=== PATIENT | male | born 1945 | race Caucasian/White ===

== ENCOUNTER → 2017-09-20 07:49 | Outpatient (CLI) | payer MEDICARE, OTHER, SELFPAY ==
[2017-09-20 08:45] LABS: BUN Creatinine Ratio 31.1 (6-22); Blood Urea Nitrogen 28 mg/dL (9-20); Calcium 9.9 mg/dL (8.4-10.2); Carbon Dioxide 32 mmol/L (22-32); Chloride 100 mmol/L (98-107); Estimated Glomerular Filt Rate > 60.0 mL/min (>60); Glucose 97 mg/dL (80-110); HEMOLYSIS 25 (0-50); Potassium 3.9 mmol/L (3.4-5.1); Sodium 144 mmol/L (137-145)
== END ==
PROVIDERS: PCP Internal Medicine; Visit Provider Internal Medicine Cardiovascular Disease
DX: I48.1 Persistent atrial fibrillation (principal); I10 Essential (primary) hypertension
CPT/HCPCS: 36415; 80048

== ENCOUNTER → 2017-11-21 12:10 | Outpatient (CLI) | payer MEDICARE, OTHER, SELFPAY ==
[2017-11-21 12:50] LABS: Add Manual Diff / Slide Review NO; Basophils Percent Auto 0.7 % (0-2); Hematocrit 45.1 % (41-53); Hemoglobin 15.4 g/dL (13.5-17.5); Lymphocytes Percent Auto 24.1 % (25-40); Mean Corpuscular HGB Conc 34.2 % (30-36); Mean Corpuscular Hemoglobin 33.7 PG (26-34); Mean Corpuscular Volume 98.5 fL (80-100); Monocytes Percent Auto 15.7 % (3-14); Neutrophils Absolute Auto 4000 /uL (3000-5900); Neutrophils Percent Auto 54.5 % (50-75); Platelet Count 290 X10^3/uL (150-400); Red Blood Cell Count 4.58 X10^6/uL (4.5-5.9); White Blood Cell Count 7.4 X10^3/uL (4.5-11.0)
[2017-11-21 12:53] LABS: INR 1.5 (0.9-1.3); Prothrombin Time 16.7 SECONDS (10.1-12.7)
[2017-11-21 12:55] LABS: PTT Partial Thromboplastin Tim 47 SECONDS (26.4-36.2)
[2017-11-21 12:59] LABS: Alanine Aminotransferase 27 IU/L (21-72); Albumin 4.1 g/dL (3.5-5.0); Albumin Globulin Ratio 1.5 (1.0-2.8); Alkaline Phosphatase 65 U/L (38-126); Aspartate Aminotransferase 24 IU/L (17-59); Bilirubin Total 1.1 mg/dL (0.2-1.3); Blood Urea Nitrogen 26 mg/dL (9-20); Calcium 9.6 mg/dL (8.4-10.2); Carbon Dioxide 34 mmol/L (22-32); Chloride 98 mmol/L (98-107); Estimated Glomerular Filt Rate > 60.0 mL/min (>60); Globulin 2.8 g/dL (1.7-4.1); Glucose 91 mg/dL (80-110); HEMOLYSIS < 15 (0-50); Magnesium 1.9 mg/dL (1.6-2.3); Potassium 3.3 mmol/L (3.4-5.1); Sodium 143 mmol/L (137-145); Total Protein 6.9 g/dL (6.3-8.2)
== END ==
PROVIDERS: PCP Family Medicine; Visit Provider Internal Medicine Cardiovascular Disease
DX: I48.1 Persistent atrial fibrillation (principal); I10 Essential (primary) hypertension; I27.89 Other specified pulmonary heart diseases
CPT/HCPCS: 36415; 80053; 83735; 83880; 85025; 85610; 85730

== ENCOUNTER → 2018-07-18 13:42 | Outpatient (CLI) | payer MEDICARE, OTHER, SELFPAY ==
[2018-07-18 15:38] LABS: Blood Urea Nitrogen 24 mg/dL (9-20); Calcium 9.9 mg/dL (8.4-10.2); Carbon Dioxide 26 mmol/L (22-32); Chloride 104 mmol/L (98-107); Estimated Glomerular Filt Rate > 60.0 mL/min (>60); Glucose 95 mg/dL (80-110); HEMOLYSIS < 15 (0-50); Magnesium 1.8 mg/dL (1.6-2.3); Potassium 4.3 mmol/L (3.4-5.1); Sodium 141 mmol/L (137-145)
== END ==
PROVIDERS: PCP Family Medicine; Visit Provider Internal Medicine Cardiovascular Disease
DX: I48.1 Persistent atrial fibrillation (principal); I10 Essential (primary) hypertension; E66.09 Other obesity due to excess calories; I25.10 Atherosclerotic heart disease of native coronary artery without angina pectoris; I45.10 Unspecified right bundle-branch block; I27.89 Other specified pulmonary heart diseases
CPT/HCPCS: 36415; 80048; 83735

== ENCOUNTER → 2019-01-15 12:29 | Outpatient (CLI) | payer MEDICARE, OTHER, SELFPAY ==
[2019-01-15 13:27] LABS: BUN Creatinine Ratio 33.8 (6-22); Blood Urea Nitrogen 27 mg/dL (9-20); Calcium 9.7 mg/dL (8.4-10.2); Carbon Dioxide 29 mmol/L (22-32); Chloride 103 mmol/L (98-107); Estimated Glomerular Filt Rate > 60.0 mL/min (>60); Glucose 78 mg/dL (80-110); HEMOLYSIS < 15 (0-50); Potassium 4.2 mmol/L (3.4-5.1); Sodium 141 mmol/L (137-145)
== END ==
PROVIDERS: PCP Family Medicine; Visit Provider Internal Medicine Cardiovascular Disease
DX: Z79.899 Other long term (current) drug therapy (principal); I10 Essential (primary) hypertension
CPT/HCPCS: 36415; 80048

== ENCOUNTER → 2019-07-01 10:57 | Outpatient (CLI) | payer MEDICARE, OTHER, SELFPAY | PROVIDERS: PCP Family Medicine; Visit Provider Family Medicine | DX: R31.9 Hematuria, unspecified (principal) | CPT/HCPCS: 87077; 87086; 87186 ==

== ENCOUNTER → 2019-07-11 09:41 | Outpatient (CLI) | payer MEDICARE, OTHER, SELFPAY ==
[2019-07-11 10:39] LABS: Add Manual Diff / Slide Review NO; Basophils Absolute Auto 100 /uL (0-100); Basophils Percent Auto 0.7 % (0-2); Eosinophils Absolute Auto 700 /uL (0-450); Eosinophils Percent Auto 9.3 % (2-4); Hematocrit 42.8 % (41-53); Hemoglobin 14.2 g/dL (13.5-17.5); Lymphocytes Absolute Auto 1900 /uL (1100-4500); Lymphocytes Percent Auto 23.3 % (25-40); Mean Corpuscular HGB Conc 33.2 % (30-36); Mean Corpuscular Hemoglobin 34.2 PG (26-34); Mean Corpuscular Volume 102.8 fL (80-100); Monocytes Absolute Auto 1200 /uL (0-900); Monocytes Percent Auto 15.4 % (3-14); Neutrophils Absolute Auto 4100 /uL (1500-7000); Neutrophils Percent Auto 51.3 % (50-75); Platelet Count 320 X10^3/uL (150-400); Red Blood Cell Count 4.17 X10^6/uL (4.5-5.9); Red Cell Distribution Width 14.6 % (11.6-14.8)
[2019-07-11 10:53] LABS: Alanine Aminotransferase 27 IU/L (<50); Albumin Globulin Ratio 1.3 (1.0-2.8); Alkaline Phosphatase 78 U/L (38-126); Aspartate Aminotransferase 31 IU/L (17-59); BUN Creatinine Ratio 24.7 (6-22); Bilirubin Total 1.1 mg/dL (0.2-1.3); Bilirubin Unconjugated 1.1 mg/dL (0.0-1.1); Blood Urea Nitrogen 23 mg/dL (9-20); Calcium 9.7 mg/dL (8.4-10.2); Carbon Dioxide 28 mmol/L (22-32); Chloride 107 mmol/L (98-107); Cholesterol 165 mg/dL (140-199); Estimated Glomerular Filt Rate > 60.0 mL/min (>60); Glucose 90 mg/dL (80-110); HDL Cholesterol 61 mg/dL (40-60); HEMOLYSIS < 15 (0-50); LDL Cholesterol Calculated 89 mg/dL (<100); Potassium 4.9 mmol/L (3.4-5.1); Sodium 142 mmol/L (137-145); Triglycerides 74 mg/dL (35-150)
[2019-07-11 11:23] LABS: Thyroid Stimulating Hormone 2.52 uIU/mL (0.47-4.68)
== END ==
PROVIDERS: PCP Family Medicine; Referring Provider Family Medicine; Visit Provider Internal Medicine Cardiovascular Disease
DX: I48.91 Unspecified atrial fibrillation (principal); D63.0 Anemia in neoplastic disease; R53.0 Neoplastic (malignant) related fatigue; I10 Essential (primary) hypertension
CPT/HCPCS: 36415; 80053; 80061; 80076; 83735; 84443; 85025

== ENCOUNTER 2019-08-12 13:55 | Emergency (ER) | payer MEDICARE, OTHER, SELFPAY ==
[2019-08-12 14:03] VITALS: BP 178/97; PULSE 79; RESP 20; TEMP 36.6; O2SAT 97
--- NOTE | 2019-08-12 14:37 | DI.US.S_ITS ---
PROCEDURE: US SCROTUM INDICATIONS: HX ING HERNIA REPAIR, WORSENING SWELLING IN R GROIN, SCROTUM TECHNIQUE: Real-time scanning was performed of the scrotum and testicles, with image documentation. Color and pulse Doppler interrogation was performed of both testicles. COMPARISON: None. FINDINGS: Right: Testicle is normal in size at 4.9 x 2.5 x 2.5 cm, and homogenous in echotexture. Epididymis is normal in overall size and morphology. There is a large right-sided hydrocele seen that measures 14 x 7.2 x 9.1 cm. No varicoceles. Overlying scrotal skin is normal in thickness. Left: Testicle is normal in size at 4.2 x 2.1 x 3.4 cm, and homogeneous in echotexture. Epididymis is normal in overall size and morphology. No hydrocele or varicoceles. Overlying scrotal skin is normal in thickness. Doppler: Color and pulse Doppler demonstrate normal and symmetric arterial flow in both testicles. No findings of hernia are seen. IMPRESSION: Large right-sided hydrocele. Normal appearing testicles. No findings of recurrent hernia. Dictated by: Michael Capellan M.D. on 08/12/2019 at 14:35 Approved by: Michael Capellan M.D. on 08/12/2019 at 14:36
[2019-08-12 15:00] VITALS: BP 170/80; PULSE 71; RESP 20; O2SAT 97
--- NOTE | 2019-08-12 16:37 | PC.NURSE ---
pt states scrotal swelling since the beginning of June.
--- NOTE | 2019-08-12 16:44 | ED.ABDPAIN ---
HPI - Abdominal Pain <Johnathon TROY Mckeon - Last Filed: 08/12/19 22:55> General Chief Complaint: Abdominal Pain Stated Complaint: POSSIBLE HERNIA Time Seen by Provider: 08/12/19 14:05 Source: patient Mode of arrival: Ambulatory Limitations: no limitations History of Present Illness HPI narrative: This is a 74-year-old male, nonsmoker, who presents to ED with right scrotal swelling since Monday afternoon. Patient reports he was working on his yard on Monday and pulled wheeze while he was on his knees and hands. Patient noticed some mild discomfort on Monday evening. Patient reports pain is not significant at all and does not increase with ambulation. Patient denies urinary symptoms or hematuria. Patient was recently treated with antibiotic medications Cipro after he was evaluated by his primary care as physician Dr. Jarquin on 07/01/2019 with hematuria and bladder infection at that time. 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 He did not have any adverse symptoms from the medication at that time. Patient was also referred [place] [facility] for further evaluation on right scrotal swelling given this may caused from inguinal hernia but due to Covid 19 pandemic, the appointment is pending at this time. Patient denies vomiting, nausea, fever. Patient sees Dr. Hebert in the past for urologic problems. Related Data Home Medications Medication Instructions Recorded Confirmed apixaban 5 mg tablet 5 mg PO BID 09/26/17 07/01/19 metoprolol tartrate 25 mg tablet 25 mg PO .qday tab 09/26/17 07/01/19 dofetilide 250 mcg capsule 250 mcg PO Q12H 04/11/18 07/01/19 losartan 50 mg tablet 50 mg PO DAILY 04/11/18 07/01/19 potassium chloride 20 mEq 20 meq PO BID tab 04/11/18 07/01/19 tablet,extended release felodipine 5 mg tablet,extended 5 mg PO DAILY 05/21/18 07/01/19 release 24 hr Previous Rx's Medication Instructions Recorded montelukast 10 mg tablet See Rx Instructions .ROUTE 05/27/19 .COMPLEX #90 tablet albuterol sulfate 90 mcg/actuation 2 puff INHALATION Q4-6H PRN #18 07/01/19 aerosol inhaler gram ciprofloxacin HCl 500 mg tablet 500 mg PO BID #14 tab 07/05/19 budesonide 90 mcg/actuation breath See Rx Instructions .ROUTE 07/24/19 activated powder inhaler .COMPLEX #3 gram Allergies Allergy/AdvReac Type Severity Reaction Status Date / Time No Known Drug Allergies Allergy Verified 07/01/19 10:33 Review of Systems <TROY Martínez - Last Filed: 08/12/19 22:55> Review of Systems Narrative: General: Denies fever, chills, fatigue, malaise, sweats. HEENT: Denies sinus pain, ear pain, sore throat, difficulty swallowing, dizziness. Respiratory: Denies dyspnea, cough, wheezing, hemoptysis, sputum. Cardiovascular: Denies chest pain, palpitations, orthopnea, edema. Gastrointestinal: Denies nausea, vomiting, abdominal pain, diarrhea, constipation, melena. : See HPI Musculoskeletal: Denies weakness, joint pain or bony pain. Skin: Denies rash, skin lesions, or other. Neurologic: Denies weakness, headache, numbness, change in speech, confusion, seizures, incoordination. Psychiatric: No concerning psychosocial issues. 12-point review of systems is negative except for those stated above. Patient History <TROY Martínez - Last Filed: 08/12/19 22:55> Medical History (Updated 08/12/19 @ 17:22 by TROY Martínez) Ankle fracture, left (Chronic) Asthma (Chronic) Atrial fibrillation (Chronic ~2017) Chicken pox (Resolved) Hay fever (Chronic) Hypertension (Chronic ~1989) Left bundle branch block (Chronic) Measles (Resolved) Mumps (Resolved) MUNIRA (obstructive sleep apnea) (Chronic) UTI (urinary tract infection) (Acute) Surgical History History of ankle joint replacement (Resolved ~2017) History of hernia repair (Resolved) History of partial knee replacement (Resolved ~2014) S/P TURP (Resolved) Social History marital status: special mariano needs: No Smoking Status: Never smoker alcohol intake: current (very very very seldom) substance use type: does not use Smoking Status: Never smoker Exam <TROY Martínez - Last Filed: 08/12/19 22:55> Narrative Exam Narrative: GEN: Alert, oriented x 3, well appearing and nourished, and in no acute distress. Head: Normal cephalic, atraumatic. No scalp or temporal tenderness, palpable mass or rash. EYES: Pupils are equal, round, and reactive to light and accommodation. Extraocular muscles are intact bilaterally. There is no subconjunctival hemorrhage, exudate and sclera non-icteric. ENT: Bilateral auditory canals and tympanic membranes clear. Hearing grossly intact. Nose without bleeding, purulent discharge or deviation. Facial sinuses nontender to palpate. Mucous membrane moist, no mucosal lesion. Throat without erythema, tonsillar hypertrophy or exudate. Uvula in midline, airway patent. Neck: Trachea in midline. No JVD, non-tender without lymphadenopathy. No masses or thyroid megaly. Supple, non-tender and no meningeal signs. CARDIAC: Normal regular rate and rhythm without murmurs, gallops, or rubs. No chest wall tenderness. No peripheral edema, cyanosis or pallor. Capillary refill is less than 2 seconds. RESPIRATORY: Lungs are clear to auscultate bilaterally. No cough, wheezes, rales, or rhonchi. No stridor, respiratory distress, increase work of breathing, or accessary muscle used. ABD: Abdomen soft, nontender and non-distended. No guarding or rebound tenderness to palpate. Bowel sounds are normal in all 4 quadrants. Right side groin swelling but nontender to palpate. EXT: Full painless ROM of all extremities with no loss of sensation, strength, effusion or edema. SKIN: Warm, dry, normal color for patient. No erythema, lesions or rash over visible areas. BACK: Nontender without deformity or crepitance. No flank tenderness. NEUROLOGICAL: Alert and oriented to place, time and person. Sensation and motor function intact bilaterally. No facial droops, dysphasia. PSYCHIATRIC: Good judgement and reason, without hallucinations, abnormal affect or abnormal behaviors during the examination. Initial Vital Signs Initial Vital Signs: Vital Signs Temperature 97.8 F 08/12/19 14:03 Pulse Rate 79 08/12/19 14:03 Respiratory Rate 20 08/12/19 14:03 Blood Pressure 178/97 H 08/12/19 14:03 Pulse Oximetry 97 08/12/19 14:03 Penis: normal penis Meatus: meatus normal Scrotum: no ecchymosis, edematous on the right, not erythematous, inguinal hernia on the right, scrotal mass, scrotal swelling on the right and no varicoceles Testes: normal and testicular lie normal <Charley Fried MD - Last Filed: 08/13/19 07:24> Initial Vital Signs Initial Vital Signs: Vital Signs Temperature 97.8 F 08/12/19 14:03 Pulse Rate 79 08/12/19 14:03 Respiratory Rate 20 08/12/19 14:03 Blood Pressure 178/97 H 08/12/19 14:03 Pulse Oximetry 97 08/12/19 14:03 Scores <Johnathon ROSSY MckeonP - Last Filed: 08/12/19 22:55> GCS Yariel coma scale eye opening: Spontaneous Yariel coma scale verbal response: Orientated Farwell coma scale motor response: Obey commands Yariel coma scale total score: 15 Course <Johnathon TROY Mckeon - Last Filed: 08/12/19 22:55> Orders Ordered: ED Orders 08/12/19 14:37 US scrotum Stat 08/12/19 16:20 Urine Culture Stat Urine Microscopic Stat Consultations Consultation #1: Dr. Fried was consulted with findings and treatment plan. Vital Signs Vital signs: Vital Signs - 8 hr 08/12/19 15:00 08/12/19 17:40 Pulse Rate 71 62 Respiratory Rate 20 17 Blood Pressure [Right Arm] 170/80 H 145/85 H Pulse Oximetry 97 99 <Charley Fried MD - Last Filed: 08/13/19 07:24> Orders Ordered: ED Orders 08/12/19 14:37 US scrotum Stat 08/12/19 16:20 Urine Culture Stat Urine Microscopic Stat Vital Signs Vital signs: Vital Signs - 8 hr 08/12/19 15:00 08/12/19 17:40 Pulse Rate 71 62 Respiratory Rate 20 17 Blood Pressure [Right Arm] 170/80 H 145/85 H Pulse Oximetry 97 99 MDM - Abdominal Pain <TROY Martínez - Last Filed: 08/12/19 22:55> Differential Diagnosis Differential diagnosis: Likely abdominal pain and other (Inguinal hernia, hydrocele, epididymitis) Medical Records Attestation: I reviewed the patient's medical records. Lab Data Attestation: I reviewed the patient's lab results. Labs: Lab Results 08/12/19 Range/Units 16:20 Urine RBC 1-5/hpf (0-5/HPF) Urine WBC 30-100/hpf H (0-5/HPF) Ur Squamous Epith Cells 0-1 /hpf (0-5/HPF) Amorphous Sediment 1+ Urine Bacteria Moderate (10-30) H (None) Urine Mucus 1+ H (Negative) Ur Culture Indicated? Specimen cultured Point of care testing: Urine Dip Bedside Urine Glucose Negative Bedside Urine Bilirubin - Negative Bedside Urine Ketone - Negative Urine Specific Superior 1.025 Bedside Urine Occult Blood +++ Bedside Urine pH 6.0 Bedside Urine Protein +/- 15 Bedside Urine Urobilinogen - Negative Bedside Urine Nitrite + Positive Bedside Urine Leukocytes +++ 500 Esterase Imaging Data US-Scrotum: Radiologist's Impression: [address] [address] Ultrasound Report Signed Patient: Ted Gentile [facility]#: [id number] : 7Acct:[id number] Age/Sex: 74 / MDate of Service: 08/12/19 Loc: ED Accession Number: [id number] Procedure: US scrotum Ordering Provider: Johnathon Mckeon PROCEDURE: US SCROTUM INDICATIONS: HX ING HERNIA REPAIR, WORSENING SWELLING IN R GROIN, SCROTUM TECHNIQUE: Real-time scanning was performed of the scrotum and testicles, with image documentation. Color and pulse Doppler interrogation was performed of both testicles. COMPARISON: None. FINDINGS: Right: Testicle is normal in size at 4.9 x 2.5 x 2.5 cm, and homogenous in echotexture. Epididymis is normal in overall size and morphology. There is a large right-sided hydrocele seen that measures 14 x 7.2 x 9.1 cm. No varicoceles. Overlying scrotal skin is normal in thickness. Left: Testicle is normal in size at 4.2 x 2.1 x 3.4 cm, and homogeneous in echotexture. Epididymis is normal in overall size and morphology. No hydrocele or varicoceles. Overlying scrotal skin is normal in thickness. Doppler: Color and pulse Doppler demonstrate normal and symmetric arterial flow in both testicles. No findings of hernia are seen. IMPRESSION: Large right-sided hydrocele. Normal appearing testicles. No findings of recurrent hernia. Dictated by: Michael Capellan M.D. on 08/12/2019 at 14:35 Approved by: Michael Capellan M.D. on 08/12/2019 at 14:36 [facility] Narrative Medical decision making narrative: This is a 74-year-old male who presents to ED with right groin and non traumatic, very mildly painful increasing scrotal swelling since Monday. Patient states he was gardening and pulled weeds while on his knees and hands prior to the symptoms started on Monday. Patient has history of inguinal hernia repair 15 years ago and had TURP procedure for BPH in the past. Patient has history of AFib and is currently takes Eliquis daily. Patient was treated with antibiotic medication Cipro for UTI in 07/01/19 and was referred to [facility] for an evaluation for increased inguinal hernia per his PCP, Dr. Jarquin. Patient denies urinary symptoms such as hematuria, dysuria, frequency or urgency. Today's urine test shows positive for urine leukocytes esterase and nitrites. Micro test indicates urine WBC, bacteria, 1+ mucus and culture is pending. Considered treating patient with antibiotic medication but previous urine culture indicates Staphylococcus epidermidis which may be a result of contaminated sample. Will wait until urine culture result indicates patient is antibiotic medication treatment. 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 Pharmacist contacted for the recommendation and was suggested that doxycycline has the least interaction with Tikosyn and to avoid all fluoroquinolones or Septra/Bactrim. US scrotum test result indicates hydrocele and no findings of recurring hernia, testicular torsion, epididymitis appreciated. Right testicles in normal size with a large right-sided hydrocele masured as 14 x 7.2 x 9.[address] Hebert was consulted and it was recommended to follow up outpatient at the urology clinic. Return precautions were discussed with patient and patient verbalized understanding and in agreement with the treatment plan. <Charley Fried MD - Last Filed: 08/13/19 07:24> Lab Data Labs: Lab Results 08/12/19 Range/Units 16:20 Urine RBC 1-5/hpf (0-5/HPF) Urine WBC 30-100/hpf H (0-5/HPF) Ur Squamous Epith Cells 0-1 /hpf (0-5/HPF) Amorphous Sediment 1+ Urine Bacteria Moderate (10-30) H (None) Urine Mucus 1+ H (Negative) Ur Culture Indicated? Specimen cultured Point of care testing: Urine Dip Bedside Urine Glucose Negative Bedside Urine Bilirubin - Negative Bedside Urine Ketone - Negative Urine Specific Superior 1.025 Bedside Urine Occult Blood +++ Bedside Urine pH 6.0 Bedside Urine Protein +/- 15 Bedside Urine Urobilinogen - Negative Bedside Urine Nitrite + Positive Bedside Urine Leukocytes +++ 500 Esterase Discharge Plan Departure Patient Disposition: Home Clinical Impression: Hydrocele in adult Discharge Date/Time: 08/12/19 17:42 Instructions: DI for Hydrocele-Adult Activity Restrictions/Additional Instructions: You have been diagnosed with [hydrocele per ultrasound test. Urine culture is pending and you will receive a phone call if you require antibiotic medication treatment since you do not have urinary symptoms at this time. Previous urine culture test. Dr. Hebert has been contacted for your condition and test findings.]. What to do: *Take your medications as directed. Please continue with your medication. *Follow up with your primary care provider and Dr. Hebert in 2-3 days, call for an appointment. Please contact Dr. Hebert's office tomorrow to make a follow-up appointment. Let them know you were seen in the ED and that we asked you to be seen in follow up. *Return to ED if you have any new, worsening, or concerning symptoms, such as [urinary symptoms including dysuria, fever, back pain, abdominal pain, vomiting, unable to void for more than 8 hours or any acute concerns]. Prescriptions: No Action albuterol sulfate [Ventolin HFA] 90 mcg/actuation HFA aerosol inhaler 2 puff INHALATION Q4-6H PRN (Reason: shortness of breath or wheezing) Qty: 18 RF: 3 montelukast 10 mg tablet See Rx Instructions .ROUTE .COMPLEX Qty: 90 RF: 3 ciprofloxacin HCl 500 mg tablet 500 mg PO BID Qty: 14 RF: 0 Pulmicort Flexhaler 90 mcg/actuation aerosol powdr breath activated See Rx Instructions .ROUTE .COMPLEX Qty: 3 RF: 1 metoprolol tartrate 25 mg tablet 25 mg PO .qday RF: 0 apixaban [Eliquis] 5 mg tablet 5 mg PO BID RF: 0 losartan 50 mg tablet 50 mg PO DAILY RF: 0 potassium chloride 20 mEq tablet extended release 20 meq PO BID RF: 0 dofetilide 250 mcg capsule 250 mcg PO Q12H RF: 0 felodipine 5 mg tablet extended release 24 hr 5 mg PO DAILY RF: 0 Referrals: Joanna Hebert MD [Non-Staff] - Arlene Jarquin MD [Primary Care Provider] - <Charley Fried MD - Last Filed: 08/13/19 07:24> Cosign ED Attending Cosignature Attestation: I was immediately available in the department for consultation throughout this patient's visit. I agree with documentation as above. Charley Fried MD
[2019-08-12 16:49] LABS: Amorphous Sediment Urine 1+; RBC Urine 1-5/HPF (0-5/HPF); Squamous Epithelial Cell Urine 0-1 /HPF (0-5/HPF); WBC Urine 30-100/HPF (0-5/HPF)
[2019-08-12 16:50] LABS: Bacteria Urine Moderate (10-30); Culture Indicated Urine Specimen Cultured; Mucus Urine 1+ (Negative)
[2019-08-12 17:40] VITALS: BP 145/85; PULSE 62; RESP 17; O2SAT 99
== END 2019-08-12 17:42 | disposition home or self-care (01) ==
PROVIDERS: Emergency Provider Nurse Practitioner Family; PCP Family Medicine
DX: N43.3 Hydrocele, unspecified (principal)
CPT/HCPCS: 36415; 76870; 81003; 81015; 87077; 87086; 87147; 87186; 99283; 99284

== ENCOUNTER → 2020-02-24 12:33 | Outpatient (CLI) | payer MEDICARE, OTHER, SELFPAY ==
[2020-02-24 14:18] LABS: Add Manual Diff / Slide Review NO; Basophils Absolute Auto 100 /uL (0-100); Basophils Percent Auto 0.7 % (0-2); Eosinophils Absolute Auto 400 /uL (0-450); Eosinophils Percent Auto 5.3 % (2-4); Hematocrit 42.4 % (41-53); Hemoglobin 14.4 g/dL (13.5-17.5); Lymphocytes Absolute Auto 1300 /uL (1100-4500); Lymphocytes Percent Auto 16.9 % (25-40); Mean Corpuscular HGB Conc 33.8 % (30-36); Mean Corpuscular Hemoglobin 34.3 PG (26-34); Mean Corpuscular Volume 101.3 fL (80-100); Monocytes Absolute Auto 1200 /uL (0-900); Neutrophils Absolute Auto 4900 /uL (1500-7000); Neutrophils Percent Auto 62.1 % (50-75); Platelet Count 284 X10^3/uL (150-400); Red Blood Cell Count 4.19 X10^6/uL (4.5-5.9); Red Cell Distribution Width 14.5 % (11.6-14.8); White Blood Cell Count 7.9 X10^3/uL (4.5-11.0)
[2020-02-24 15:35] LABS: Alanine Aminotransferase 21 IU/L (<50); Albumin 3.8 g/dL (3.5-5.0); Albumin Globulin Ratio 1.3 (1.0-2.8); Alkaline Phosphatase 77 U/L (38-126); Aspartate Aminotransferase 24 IU/L (17-59); BUN Creatinine Ratio 32.1 (6-22); Bilirubin Total 0.8 mg/dL (0.2-1.3); Blood Urea Nitrogen 27 mg/dL (9-20); Calcium 9.5 mg/dL (8.4-10.2); Carbon Dioxide 30 mmol/L (22-32); Chloride 105 mmol/L (98-107); Cholesterol 155 mg/dL (140-199); Estimated Glomerular Filt Rate > 60.0 mL/min (>60); Globulin 2.9 g/dL (1.7-4.1); Glucose 95 mg/dL (80-110); HDL Cholesterol 55 mg/dL (40-60); HEMOLYSIS < 15 (0-50); LDL Cholesterol Calculated 79 mg/dL (<100); Potassium 4.8 mmol/L (3.4-5.1); Sodium 139 mmol/L (137-145); Total Protein 6.7 g/dL (6.3-8.2); Triglycerides 105 mg/dL (35-150)
== END ==
PROVIDERS: PCP Family Medicine; Referring Provider Internal Medicine Cardiovascular Disease; Visit Provider Internal Medicine Cardiovascular Disease
DX: I48.11 Longstanding persistent atrial fibrillation (principal); I10 Essential (primary) hypertension; I44.7 Left bundle-branch block, unspecified; E66.09 Other obesity due to excess calories; I25.10 Atherosclerotic heart disease of native coronary artery without angina pectoris; J44.9 Chronic obstructive pulmonary disease, unspecified; G47.33 Obstructive sleep apnea (adult) (pediatric)
CPT/HCPCS: 36415; 80053; 80061; 84443; 85025

== ENCOUNTER → 2020-05-29 14:55 | Outpatient (CLI) | payer MEDICARE, OTHER, SELFPAY ==
[2020-05-29] MEDS: COVID-19 VACC #1, MRNA(MOD) 100 MCG/0.5 ML VIAL IM (15:01)
== END ==
PROVIDERS: PCP Family Medicine; Visit Provider Internal Medicine
DX: Z23 Encounter for immunization (principal)
CPT/HCPCS: 0011A; 91301

== ENCOUNTER → 2020-06-25 14:01 | Outpatient (CLI) | payer MEDICARE, OTHER, SELFPAY ==
[2020-06-25] MEDS: COVID-19 VACC #2, MRNA(MOD) 100 MCG/0.5 ML VIAL IM (14:14)
== END ==
PROVIDERS: PCP Family Medicine; Visit Provider Internal Medicine
DX: Z23 Encounter for immunization (principal)
CPT/HCPCS: 0012A; 91301

== ENCOUNTER → 2020-07-13 09:33 | Outpatient (CLI) | payer MEDICARE, OTHER, SELFPAY ==
[2020-07-13 09:49] LABS: Bacteria Urine None Seen
[2020-07-13 10:32] LABS: Appearance Urine UA CLOUDY; Bilirubin Urine UA NEGATIVE (NEGATIVE); Color Urine UA ORANGE; Glucose Urine UA TRACE g/dL (Negative); Ketones Urine UA NEGATIVE (NEGATIVE); Leukocyte Esterase Urine UA 3+ (NEGATIVE); Nitrite Urine UA POSITIVE (Negative); Occult Blood Urine UA 3+ (Negative); Protein Urine UA 2+ (Negative); pH Urine UA 6.5 (4.5-8.0)
[2020-07-13 10:44] LABS: Amorphous Sediment Urine 3+; Culture Indicated Urine Specimen Cultured; RBC Urine 1-5/HPF (0-5/HPF); WBC Urine 30-100/HPF (0-5/HPF)
== END ==
PROVIDERS: PCP Family Medicine; Referring Provider Family Medicine; Visit Provider Family Medicine
DX: R30.0 Dysuria (principal)
CPT/HCPCS: 81001; 87077; 87086; 87186

== ENCOUNTER → 2020-07-20 13:17 | Outpatient (CLI) | payer MEDICARE, OTHER, SELFPAY ==
[2020-07-20 13:39] LABS: Appearance Urine UA CLOUDY; Bilirubin Urine UA NEGATIVE (NEGATIVE); Color Urine UA YELLOW; Glucose Urine UA NEGATIVE (Negative); Ketones Urine UA NEGATIVE (NEGATIVE); Leukocyte Esterase Urine UA 3+ (NEGATIVE); Nitrite Urine UA POSITIVE (Negative); Occult Blood Urine UA 3+ (Negative); Protein Urine UA 2+ (Negative); Specific Gravity Urine UA >=1.030 (1.000-1.035); Urobilinogen Urine UA 0.2 E.U./dL (0.2); pH Urine UA 5.5 (4.5-8.0)
[2020-07-20 13:45] LABS: Amorphous Sediment Urine 1+; Bacteria Urine Moderate (10-30); Culture Indicated Urine Specimen Cultured; Mucus Urine 2+ (Negative); RBC Urine 5-10/HPF (0-5/HPF); Squamous Epithelial Cell Urine 1-5 /HPF (0-5/HPF); WBC Urine >100/HPF (0-5/HPF)
== END ==
PROVIDERS: PCP Family Medicine; Referring Provider Family Medicine; Visit Provider Family Medicine
DX: N39.0 Urinary tract infection, site not specified (principal)
CPT/HCPCS: 81001; 87077; 87086; 87147; 87186

== ENCOUNTER → 2020-08-04 13:19 | Outpatient (CLI) | payer MEDICARE, OTHER, SELFPAY | PROVIDERS: PCP Family Medicine; Visit Provider Family Medicine | DX: N39.0 Urinary tract infection, site not specified (principal) | CPT/HCPCS: 87077; 87086; 87147; 87186 ==

== ENCOUNTER → 2021-06-11 08:08 | Outpatient (CLI) | payer MEDICARE, OTHER, SELFPAY ==
[2021-06-11 10:23] LABS: Alanine Aminotransferase 22 IU/L (<50); Albumin Globulin Ratio 1.4 (1.0-2.8); Alkaline Phosphatase 74 U/L (38-126); Aspartate Aminotransferase 25 IU/L (17-59); BUN Creatinine Ratio 35.2 (6-22); Bilirubin Total 0.8 mg/dL (0.2-1.3); Blood Urea Nitrogen 32 mg/dL (9-20); Calcium 9.4 mg/dL (8.4-10.2); Carbon Dioxide 32 mmol/L (22-32); Chloride 107 mmol/L (98-107); Cholesterol 168 mg/dL (140-199); Estimated Glomerular Filt Rate > 60.0 mL/min (>60); Globulin 2.9 g/dL (1.7-4.1); Glucose 89 mg/dL (80-110); HDL Cholesterol 59 mg/dL (40-60); HEMOLYSIS < 15 (0-50); LDL Cholesterol Calculated 96 mg/dL (<100); Potassium 4.4 mmol/L (3.4-5.1); Sodium 141 mmol/L (137-145); Total Protein 6.9 g/dL (6.3-8.2); Triglycerides 63 mg/dL (35-150)
[2021-06-11 12:31] LABS: Creatinine Urine Random 137.5 mg/dL
[2021-06-11 13:58] LABS: Microalbumi Creatinin Ratio Ur 400.7 ug/mg CR (<30); Microalbumin Urine Random 55.1 mg/dL (0-1.6)
== END ==
PROVIDERS: PCP Family Medicine; Referring Provider Family Medicine; Visit Provider Family Medicine
DX: I10 Essential (primary) hypertension (principal)
CPT/HCPCS: 36415; 80053; 80061; 82043; 82570

== ENCOUNTER → 2021-09-28 06:58 | Outpatient (CLI) | payer MEDICARE, OTHER, SELFPAY ==
[2021-09-28 08:09] LABS: Hemoglobin A1C% w Est Avg Glu 5.5 % (4.0-6.0)
[2021-09-28 08:12] LABS: Add Manual Diff / Slide Review NO; Basophils Absolute Auto 0 /uL (0-100); Basophils Percent Auto 0.6 % (0-2); Eosinophils Absolute Auto 800 /uL (0-450); Eosinophils Percent Auto 10.1 % (2-4); Hematocrit 39.2 % (41-53); Hemoglobin 13.2 g/dL (13.5-17.5); Lymphocytes Absolute Auto 1400 /uL (1100-4500); Lymphocytes Percent Auto 18.9 % (25-40); Mean Corpuscular HGB Conc 33.8 % (30-36); Mean Corpuscular Hemoglobin 32.4 PG (26-34); Mean Corpuscular Volume 95.9 fL (80-100); Monocytes Absolute Auto 1100 /uL (0-900); Monocytes Percent Auto 14.3 % (3-14); Neutrophils Absolute Auto 4200 /uL (1500-7000); Neutrophils Percent Auto 56.1 % (50-75); Platelet Count 367 X10^3/uL (150-400); Red Blood Cell Count 4.08 X10^6/uL (4.5-5.9); Red Cell Distribution Width 14.4 % (11.6-14.8); White Blood Cell Count 7.5 X10^3/uL (4.5-11.0)
[2021-09-28 08:53] LABS: Alanine Aminotransferase 18 IU/L (<50); Albumin 3.7 g/dL (3.5-5.0); Albumin Globulin Ratio 1.9 (1.0-2.8); Alkaline Phosphatase 72 U/L (38-126); Aspartate Aminotransferase 23 IU/L (17-59); Bilirubin Total 0.7 mg/dL (0.2-1.3); Blood Urea Nitrogen 30 mg/dL (9-20); Calcium 9.1 mg/dL (8.4-10.2); Carbon Dioxide 27 mmol/L (22-32); Chloride 107 mmol/L (98-107); Cholesterol 156 mg/dL (140-199); Estimated Glomerular Filt Rate > 60 mL/min (>60); Glucose 89 mg/dL (80-110); HDL Cholesterol 55 mg/dL (40-60); HEMOLYSIS < 15 (0-50); LDL Cholesterol Calculated 84 mg/dL (<100); Potassium 4.5 mmol/L (3.4-5.1); Sodium 140 mmol/L (137-145); Total Protein 5.7 g/dL (6.3-8.2); Triglycerides 83 mg/dL (35-150)
[2021-09-28 09:23] LABS: Thyroid Stimulating Hormone 2.06 uIU/mL (0.47-4.68)
== END ==
PROVIDERS: PCP Family Medicine; Referring Provider Internal Medicine Cardiovascular Disease; Visit Provider Internal Medicine Cardiovascular Disease
DX: I48.0 Paroxysmal atrial fibrillation (principal); Z79.899 Other long term (current) drug therapy
CPT/HCPCS: 36415; 80053; 80061; 83036; 84443; 85025

== ENCOUNTER → 2022-06-04 09:51 | Outpatient (CLI) | payer MEDICARE, OTHER, SELFPAY ==
[2022-06-04 12:23] LABS: Add Manual Diff / Slide Review NO; Basophils Absolute Auto 100 /uL (0-100); Eosinophils Absolute Auto 1200 /uL (0-450); Eosinophils Percent Auto 13.7 % (2-4); Hematocrit 29.2 % (41-53); Hemoglobin 8.7 g/dL (13.5-17.5); Lymphocytes Absolute Auto 1700 /uL (1100-4500); Lymphocytes Percent Auto 19.1 % (25-40); Mean Corpuscular HGB Conc 29.9 % (30-36); Mean Corpuscular Hemoglobin 22.1 PG (26-34); Mean Corpuscular Volume 73.8 fL (80-100); Monocytes Absolute Auto 1500 /uL (0-900); Neutrophils Absolute Auto 4600 /uL (1500-7000); Neutrophils Percent Auto 50.2 % (50-75); Platelet Count 537 X10^3/uL (150-400); Red Blood Cell Count 3.96 X10^6/uL (4.5-5.9); Red Cell Distribution Width 18.8 % (11.6-14.8); White Blood Cell Count 9.1 X10^3/uL (4.5-11.0)
[2022-06-04 12:42] LABS: Alanine Aminotransferase 19 IU/L (<50); Albumin 3.5 g/dL (3.5-5.0); Albumin Globulin Ratio 1.3 (1.0-2.8); Alkaline Phosphatase 82 U/L (38-126); Aspartate Aminotransferase 21 IU/L (17-59); BUN Creatinine Ratio 28.9 (6-22); Bilirubin Total 0.4 mg/dL (0.2-1.3); Blood Urea Nitrogen 26 mg/dL (9-20); Calcium 8.7 mg/dL (8.4-10.2); Carbon Dioxide 26 mmol/L (22-32); Chloride 105 mmol/L (98-107); Cholesterol 138 mg/dL (140-199); Estimated Glomerular Filt Rate > 60 mL/min (>60); Globulin 2.7 g/dL (1.7-4.1); Glucose 90 mg/dL (80-110); HDL Cholesterol 53 mg/dL (40-60); HEMOLYSIS < 15 (0-50); LDL Cholesterol Calculated 75 mg/dL (<100); Magnesium 1.9 mg/dL (1.6-2.3); Potassium 4.5 mmol/L (3.4-5.1); Sodium 141 mmol/L (137-145); Total Protein 6.2 g/dL (6.3-8.2); Triglycerides 51 mg/dL (35-150)
[2022-06-04 13:11] LABS: Thyroid Stimulating Hormone 2.25 uIU/mL (0.47-4.68)
== END ==
PROVIDERS: PCP Family Medicine; Referring Provider Internal Medicine Cardiovascular Disease; Visit Provider Internal Medicine Cardiovascular Disease
DX: I48.0 Paroxysmal atrial fibrillation (principal); I10 Essential (primary) hypertension
CPT/HCPCS: 36415; 80053; 80061; 83735; 84443; 85025

== ENCOUNTER → 2022-09-27 12:36 | Outpatient (CLI) | payer MEDICARE, OTHER, SELFPAY ==
[2022-09-27 14:28] LABS: Add Manual Diff / Slide Review NO; Basophils Absolute Auto 100 /uL (0-100); Basophils Percent Auto 1.9 % (0-2); Eosinophils Absolute Auto 600 /uL (0-450); Hematocrit 29.9 % (41-53); Hemoglobin 9.1 g/dL (13.5-17.5); Lymphocytes Absolute Auto 1300 /uL (1100-4500); Lymphocytes Percent Auto 16.9 % (25-40); Mean Corpuscular HGB Conc 30.5 % (30-36); Mean Corpuscular Hemoglobin 21.3 PG (26-34); Mean Corpuscular Volume 69.8 fL (80-100); Monocytes Absolute Auto 1000 /uL (0-900); Monocytes Percent Auto 13.2 % (3-14); Neutrophils Absolute Auto 4500 /uL (1500-7000); Platelet Count 556 X10^3/uL (150-400); Red Blood Cell Count 4.28 X10^6/uL (4.5-5.9); Red Cell Distribution Width 20.8 % (11.6-14.8); White Blood Cell Count 7.5 X10^3/uL (4.5-11.0)
[2022-09-27 14:35] LABS: Anisocytosis 2+; Poikilocytosis 1+
[2022-09-27 14:52] LABS: BUN Creatinine Ratio 33.3 (6-22); Blood Urea Nitrogen 29 mg/dL (9-20); Calcium 8.9 mg/dL (8.4-10.2); Carbon Dioxide 27 mmol/L (22-32); Chloride 104 mmol/L (98-107); Cholesterol 152 mg/dL (140-199); Estimated Glomerular Filt Rate > 60 mL/min (>60); Glucose 96 mg/dL (80-110); HDL Cholesterol 48 mg/dL (40-60); HEMOLYSIS 26 (0-50); LDL Cholesterol Calculated 85 mg/dL (<100); Potassium 4.2 mmol/L (3.4-5.1); Sodium 141 mmol/L (137-145); Triglycerides 96 mg/dL (35-150)
[2022-09-27 15:25] LABS: Thyroid Stimulating Hormone 1.51 uIU/mL (0.47-4.68)
[2022-09-28 05:44] LABS: x Labcorp Estim. Avg Glu (eAG) 117 mg/dL (.); x Labcorp Hemoglobin A1c 5.7 % (4.8-5.6)
== END ==
PROVIDERS: PCP Family Medicine; Referring Provider Internal Medicine Cardiovascular Disease; Visit Provider Internal Medicine Cardiovascular Disease
DX: Z79.899 Other long term (current) drug therapy (principal)
CPT/HCPCS: 36415; 80048; 80061; 83036; 84443; 85025

== ENCOUNTER → 2023-01-24 17:35 | Outpatient (CLI) | payer MEDICARE, OTHER, SELFPAY ==
[2023-01-24 18:04] LABS: Appearance Urine UA CLOUDY; Bilirubin Urine UA NEGATIVE (NEGATIVE); Color Urine UA YELLOW; Glucose Urine UA NEGATIVE (Negative); Ketones Urine UA NEGATIVE (NEGATIVE); Leukocyte Esterase Urine UA 3+ (NEGATIVE); Nitrite Urine UA POSITIVE (Negative); Occult Blood Urine UA 3+ (Negative); Protein Urine UA 2+ (Negative); Urobilinogen Urine UA 0.2 E.U./dL (0.2)
[2023-01-24 18:15] LABS: Bacteria Urine Many (>30); Culture Indicated Urine Specimen Cultured; RBC Urine 30-100/HPF (0-5/HPF); Squamous Epithelial Cell Urine 1-5 /HPF (0-5/HPF); WBC Urine >100/HPF (0-5/HPF)
== END ==
PROVIDERS: PCP Family Medicine; Referring Provider Family Medicine; Visit Provider Family Medicine
DX: N39.41 Urge incontinence (principal); R39.15 Urgency of urination
CPT/HCPCS: 81001; 87086

== ENCOUNTER → 2023-01-30 16:37 | Outpatient (CLI) | payer MEDICARE, OTHER, SELFPAY ==
[2023-01-30 18:29] LABS: Add Manual Diff / Slide Review NO; Basophils Absolute Auto 100 /uL (0-100); Basophils Percent Auto 1.2 % (0-2); Eosinophils Absolute Auto 500 /uL (0-450); Hematocrit 28.5 % (41-53); Hemoglobin 8.7 g/dL (13.5-17.5); Lymphocytes Absolute Auto 1400 /uL (1100-4500); Lymphocytes Percent Auto 18.3 % (25-40); Mean Corpuscular HGB Conc 30.4 % (30-36); Mean Corpuscular Hemoglobin 20.7 PG (26-34); Mean Corpuscular Volume 68.2 fL (80-100); Monocytes Absolute Auto 1200 /uL (0-900); Monocytes Percent Auto 15.7 % (3-14); Neutrophils Absolute Auto 4500 /uL (1500-7000); Neutrophils Percent Auto 57.8 % (50-75); Platelet Count 569 X10^3/uL (150-400); Red Blood Cell Count 4.18 X10^6/uL (4.5-5.9); Red Cell Distribution Width 21.6 % (11.6-14.8); White Blood Cell Count 7.7 X10^3/uL (4.5-11.0)
[2023-01-30 18:30] LABS: HEMOLYSIS < 15 (0-50); Iron 15 ug/dL (49-181)
[2023-01-30 18:40] LABS: Percent Iron Saturation 3 % (20-50); Total Iron Binding Capacity 476 ug/dL (261-462); Transferrin 392 mg/dL (206-381)
[2023-01-30 18:40] LABS: Appearance Urine UA CLOUDY; Bilirubin Urine UA NEGATIVE (NEGATIVE); Color Urine UA RED; Glucose Urine UA NEGATIVE (Negative); Ketones Urine UA NEGATIVE (NEGATIVE); Leukocyte Esterase Urine UA 2+ (NEGATIVE); Nitrite Urine UA NEGATIVE (Negative); Occult Blood Urine UA 3+ (Negative); Protein Urine UA 2+ (Negative); Specific Gravity Urine UA 1.025 (1.000-1.035); Urobilinogen Urine UA 0.2 E.U./dL (0.2); pH Urine UA 6.5 (4.5-8.0)
[2023-01-30 18:47] LABS: Anisocytosis 2+
[2023-01-30 18:48] LABS: Microcytosis 1+; Schistocytes 1+
[2023-01-30 18:49] LABS: Stomatocytes 1+
[2023-01-30 18:50] LABS: Ovalocytes 1+
[2023-01-30 19:34] LABS: Bacteria Urine Occasional (0-1); Culture Indicated Urine Specimen Cultured; RBC Urine >100/HPF (0-5/HPF); Squamous Epithelial Cell Urine 0-1 /HPF (0-5/HPF); Transitional Epi Cells Urine 1-5/HPF (0-5/HPF); WBC Urine 10-30/HPF (0-5/HPF)
== END ==
PROVIDERS: PCP Family Medicine; Referring Provider Family Medicine; Visit Provider Family Medicine
DX: D64.9 Anemia, unspecified (principal); N39.0 Urinary tract infection, site not specified
CPT/HCPCS: 36415; 81001; 83540; 83550; 85025; 87086

== ENCOUNTER → 2023-02-06 16:35 | Outpatient (CLI) | payer MEDICARE, OTHER, SELFPAY ==
[2023-02-08 10:33] LABS: Fecal Immunochemical Test Negative (Negative)
== END ==
PROVIDERS: PCP Family Medicine; Referring Provider Family Medicine; Visit Provider Family Medicine
DX: D64.9 Anemia, unspecified (principal); Z12.11 Encounter for screening for malignant neoplasm of colon
CPT/HCPCS: 82274

== ENCOUNTER → 2023-02-12 13:58 | Outpatient (CLI) | payer MEDICARE, OTHER, SELFPAY | PROVIDERS: PCP Family Medicine; Visit Provider Nurse Practitioner Family | DX: R10.9 Unspecified abdominal pain (principal) | CPT/HCPCS: 87086 ==

== ENCOUNTER → 2023-02-23 14:10 | Outpatient (CLI) | payer MEDICARE, OTHER, SELFPAY ==
[2023-02-23 15:15] LABS: Add Manual Diff / Slide Review NO; Basophils Absolute Auto 100 /uL (0-100); Basophils Percent Auto 1.7 % (0-2); Eosinophils Absolute Auto 400 /uL (0-450); Eosinophils Percent Auto 6.4 % (2-4); Hematocrit 29.8 % (41-53); Hemoglobin 9.1 g/dL (13.5-17.5); Lymphocytes Absolute Auto 1100 /uL (1100-4500); Lymphocytes Percent Auto 15.7 % (25-40); Mean Corpuscular HGB Conc 30.6 % (30-36); Mean Corpuscular Hemoglobin 22.4 PG (26-34); Mean Corpuscular Volume 73.1 fL (80-100); Monocytes Absolute Auto 1000 /uL (0-900); Monocytes Percent Auto 14.3 % (3-14); Neutrophils Absolute Auto 4300 /uL (1500-7000); Neutrophils Percent Auto 61.9 % (50-75); Platelet Count 516 X10^3/uL (150-400); Red Blood Cell Count 4.08 X10^6/uL (4.5-5.9); Red Cell Distribution Width 26.8 % (11.6-14.8)
[2023-02-23 16:01] LABS: Anisocytosis 3+; Microcytosis 1+; Ovalocytes 1+
[2023-02-23 16:02] LABS: Schistocytes 1+
== END ==
PROVIDERS: PCP Family Medicine; Referring Provider Family Medicine; Visit Provider Family Medicine
DX: D64.9 Anemia, unspecified (principal)
CPT/HCPCS: 36415; 85025

== ENCOUNTER → 2023-05-03 12:16 | Outpatient (CLI) | payer MEDICARE, OTHER, SELFPAY ==
[2023-05-03 13:25] LABS: Add Manual Diff / Slide Review NO; Basophils Absolute Auto 100 /uL (0-100); Eosinophils Absolute Auto 600 /uL (0-450); Eosinophils Percent Auto 7.5 % (2-4); Hematocrit 33.3 % (41-53); Hemoglobin 10.2 g/dL (13.5-17.5); Lymphocytes Absolute Auto 1300 /uL (1100-4500); Lymphocytes Percent Auto 15.5 % (25-40); Mean Corpuscular HGB Conc 30.5 % (30-36); Mean Corpuscular Hemoglobin 23.2 PG (26-34); Mean Corpuscular Volume 76.1 fL (80-100); Monocytes Absolute Auto 1700 /uL (0-900); Monocytes Percent Auto 19.4 % (3-14); Neutrophils Absolute Auto 4900 /uL (1500-7000); Neutrophils Percent Auto 56.6 % (50-75); Platelet Count 583 X10^3/uL (150-400); Red Blood Cell Count 4.38 X10^6/uL (4.5-5.9); Red Cell Distribution Width 20.4 % (11.6-14.8); White Blood Cell Count 8.7 X10^3/uL (4.5-11.0)
[2023-05-03 13:41] LABS: Alanine Aminotransferase 17 IU/L (<50); Albumin 3.9 g/dL (3.5-5.0); Albumin Globulin Ratio 1.3 (1.0-2.8); Alkaline Phosphatase 68 U/L (38-126); Aspartate Aminotransferase 23 IU/L (17-59); BUN Creatinine Ratio 26.5 (6-22); Bilirubin Total 0.7 mg/dL (0.2-1.3); Blood Urea Nitrogen 26 mg/dL (9-20); Calcium 9.7 mg/dL (8.4-10.2); Carbon Dioxide 28 mmol/L (22-32); Chloride 105 mmol/L (98-107); Estimated Glomerular Filt Rate > 60 mL/min (>60); Globulin 3.1 g/dL (1.7-4.1); Glucose 98 mg/dL (80-110); HEMOLYSIS < 15 (0-50); Potassium 4.5 mmol/L (3.4-5.1); Sodium 140 mmol/L (137-145)
[2023-05-03 13:42] LABS: Iron 15 ug/dL (49-181)
[2023-05-03 14:14] LABS: Ferritin 4 ng/mL (18-464)
[2023-05-03 14:41] LABS: Appearance Urine UA CLOUDY; Bilirubin Urine UA NEGATIVE (NEGATIVE); Color Urine UA YELLOW; Glucose Urine UA NEGATIVE (Negative); Ketones Urine UA NEGATIVE (NEGATIVE); Leukocyte Esterase Urine UA 2+ (NEGATIVE); Nitrite Urine UA POSITIVE (Negative); Occult Blood Urine UA 3+ (Negative); Protein Urine UA 3+ (Negative); Urobilinogen Urine UA 0.2 E.U./dL (0.2)
[2023-05-03 14:50] LABS: Bacteria Urine Many (>30); Culture Indicated Urine Specimen Cultured; RBC Urine >100/HPF (0-5/HPF); Squamous Epithelial Cell Urine 1-5 /HPF (0-5/HPF); WBC Urine 30-100/HPF (0-5/HPF)
[2023-05-03 15:35] LABS: Microcytosis 1+; Ovalocytes 1+; Schistocytes 1+
[2023-05-03 15:36] LABS: Platelet Estimate Increased on smear
== END ==
PROVIDERS: PCP Family Medicine; Referring Provider Family Medicine; Visit Provider Family Medicine
DX: D64.9 Anemia, unspecified (principal); R39.15 Urgency of urination
CPT/HCPCS: 36415; 80053; 81001; 82728; 83540; 85025; 87086

== ENCOUNTER 2023-06-08 12:27 | Emergency (ER) | payer MEDICARE, OTHER, SELFPAY ==
[2023-06-08 12:49] VITALS: BP 132/87; PULSE 70; RESP 14; TEMP 36.5; O2SAT 99; BMI 31.2
[2023-06-08] MEDS: LIDOCAINE 2% (GLYDO) 6 ML GEL TOP (13:24)
--- NOTE | 2023-06-08 13:25 | ED.MALEGU ---
HPI - Male Genitourinary <Anali Zuñiga PA-C - Last Filed: 06/08/23 20:13> General Chief complaint: Urogenital-Male Stated complaint: bladder problems, back pain, trouble urinating Time Seen by Provider: 06/08/23 13:25 Source: patient Mode of arrival: Ambulatory History of Present Illness HPI Narrative: This is a 77-year-old male with history of partial TURP, problems with urinary retention, hypertension, AFib who presents with concern for 2 days of urinary symptoms, burning discomfort at the tip of his penis with urination and peeing more often and with less volume than usual. Patient states he feels he has had a little bit of issue with retention as he has not peeing as much as usual. He denies pelvic pain but does state that he has been having some back aching type pain on both sides of his spine low down for the past few days along with his current symptoms. Denies fevers chills nausea reduced appetite vomiting abdominal pain chest pain shortness of breath or any other symptoms. Related Data Home Medications Medication Instructions Recorded Confirmed apixaban 5 mg tablet (Eliquis) 5 mg PO BID 09/26/17 06/05/23 metoprolol tartrate 25 mg tablet 25 mg PO .qday 09/26/17 06/05/23 dofetilide 250 mcg capsule 250 mcg PO Q12H 04/11/18 06/05/23 losartan 50 mg tablet 50 mg PO DAILY 04/11/18 06/05/23 potassium chloride 20 mEq 20 meq PO BID 04/11/18 06/05/23 tablet,extended release felodipine 5 mg tablet,extended 5 mg PO DAILY 05/21/18 06/05/23 release 24 hr Previous Rx's Medication Instructions Recorded albuterol sulfate 90 mcg/actuation 2 puff inhalation Q4-6H PRN 07/01/19 aerosol inhaler (Ventolin HFA) shortness of breath or wheezing #18 grams budesonide 90 mcg/actuation breath See Rx Instructions .Route 10/19/22 activated powder inhaler .COMPLEX #3 grams (Pulmicort Flexhaler) fluticasone propionate 110 2 puff inhalation BID #12 grams 01/30/23 mcg/actuation HFA aerosol inhaler (Flovent HFA) montelukast 10 mg tablet 10 mg PO ONCE PM #90 tabs 11/14/23 ferumoxytol 510 mg/17 mL (30 510 mg (17 mL) IV Q3D 2 doses 05/03/23 mg/mL) intravenous solution (Feraheme) sodium,potassium,mag sulfates 17.5 See Rx Instructions PO .COMPLEX 06/05/23 gram-3.13 gram-1.6 gram oral soln #354 mL (Suprep Bowel Prep Kit) cefpodoxime 200 mg tablet 200 mg PO BID UTI 7 days #14 tabs 06/08/23 Allergies Allergy/AdvReac Type Severity Reaction Status Date / Time ciprofloxacin Allergy Severe possible Verified 06/08/23 12:54 fatal reaction to Dofetilide, cardiac med Review of Systems <Anali Zuñiga PA-C - Last Filed: 06/08/23 20:13> Review of Systems Narrative: See HPI Patient History <Anali Zuñiga PA-C - Last Filed: 06/08/23 20:13> Medical History UTI (urinary tract infection) Left bundle branch block MUNIRA (obstructive sleep apnea) Asthma Hay fever Ankle fracture, left Mumps Measles Chicken pox Hypertension (~1989) Atrial fibrillation (~2017) Surgical History S/P TURP History of hernia repair History of ankle joint replacement (~2017) History of partial knee replacement (~2014) Family History Father Cancer Mother Heart disease Hyperlipidemia Hypertension Stroke Social History marital status: special mariano needs: No Smoking Status: Never smoker second hand exposure: No alcohol intake: current substance use type: does not use Smoking Status: Never smoker alcohol intake frequency: 0-2 drinks per day Substance Use Type: does not use Exam <Anali Zuñiga PA-C - Last Filed: 06/08/23 20:13> Narrative Exam Narrative: GENERAL: 77 year old patient appears stated age. Overweight patient, in mild distress. HEAD: Atraumatic. Normocephalic. EYES: Pupils equal round and reactive. Extraocular motions intact. No scleral icterus. No injection or drainage. ENT: Nose without bleeding, purulent drainage. Airway patent. NECK: Trachea midline. Non tender CARDIOVASCULAR: Regular rate and rhythm without murmurs, gallops, or rubs. RESPIRATORY: Clear to auscultation. Breath sounds equal bilaterally. No wheezes, rales, or rhonchi. GASTROINTESTINAL: Abdomen soft, non-tender, nondistended. EXTREMITIES: No edema or joint tenderness. BACK: Nontender without deformity or crepitance. No flank tenderness/no CVA tenderness. NEURO: AOx3. SKIN: No rash or erythema of visible areas Initial Vital Signs Initial Vital Signs: Vital Signs Temperature 97.7 F 06/08/23 12:49 Pulse Rate 70 06/08/23 12:49 Respiratory Rate 14 06/08/23 12:49 Blood Pressure 132/87 06/08/23 12:49 Pulse Oximetry 99 06/08/23 12:49 Oxygen Delivery Method Room Air 06/08/23 12:49 <Jv Ray MD - Last Filed: 06/09/23 08:13> Initial Vital Signs Initial Vital Signs: Vital Signs Temperature 97.7 F 06/08/23 12:49 Pulse Rate 70 06/08/23 12:49 Respiratory Rate 14 06/08/23 12:49 Blood Pressure 132/87 06/08/23 12:49 Pulse Oximetry 99 06/08/23 12:49 Oxygen Delivery Method Room Air 06/08/23 12:49 Course <Anali Zuñiga PA-C - Last Filed: 06/08/23 20:13> Course Course Narrative: Bladder scan was at most about 40 mL. Orders Ordered: Discontinued Medications Lidocaine HCl (Lidocaine 2% (Glydo) 6 Ml Gel) 6 ml TOP NOW ONE Stop: 06/08/23 12:58 Last Admin: 06/08/23 13:24 Dose: 6 ml Documented By: KIARA Vital Signs Vital signs: Vital Signs - 8 hr 06/08/23 12:49 06/08/23 15:45 Temperature 97.7 F Pulse Rate 70 56 L Respiratory Rate 14 18 Blood Pressure 132/87 149/72 H Pulse Oximetry 99 97 Oxygen Delivery Method Room Air Room Air <Jv Ray MD - Last Filed: 06/09/23 08:13> Orders Ordered: Discontinued Medications Lidocaine HCl (Lidocaine 2% (Glydo) 6 Ml Gel) 6 ml TOP NOW ONE Stop: 06/08/23 12:58 Last Admin: 06/08/23 13:24 Dose: 6 ml Documented By: KIARA Vital Signs Vital signs: Vital Signs - 8 hr 06/08/23 12:49 06/08/23 15:45 Temperature 97.7 F Pulse Rate 70 56 L Respiratory Rate 14 18 Blood Pressure 132/87 149/72 H Pulse Oximetry 99 97 Oxygen Delivery Method Room Air Room Air MDM - Male Genitourinary <Anali Zuñiga PA-C - Last Filed: 06/08/23 20:13> Differential Diagnosis Differential diagnosis: Likely urinary tract infection Medical Records Attestation: I reviewed the patient's medical records. Lab Data Attestation: I reviewed the patient's lab results. Labs: Lab Results 06/08/23 Range/Units 13:53 Urine Color Yellow Urine Appearance Cloudy Urine pH 7.5 (4.5-8.0) Ur Specific [place] 1.025 (1.000-1.035) Urine Protein 3+ H (Negative) Urine Glucose (UA) Negative (Negative) g/dL Urine Ketones Negative (NEGATIVE) Urine Occult Blood 3+ H (Negative) Urine Nitrate Positive H (Negative) Urine Bilirubin Negative (NEGATIVE) Urine Urobilinogen 1.0 (0.2) E.U./dL Ur Leukocyte Esterase 3+ H (NEGATIVE) Urine RBC 30-100/hpf H (0-5/HPF) Urine WBC >100/hpf H (0-5/HPF) Ur Squamous Epith Cells 1-5 /hpf (0-5/HPF) Triple Phos Crystals Moderate Urine Bacteria None seen (None) Ur Culture Indicated? Specimen cultured Vol Urine Centrifuged 10ml (spun) MDM Narrative Medical decision making narrative: This is a 77-year-old male with chronic UTIs, history of urinary retention problems hypertension and AFib who presents with concern for decreased urinary output pain with urination for the last 2 days as well as some muscle pain in his back on both sides of his low back. Patient is nontoxic appearing with unremarkable vitals and blood labs and imaging are not obtained, his abdomen is nontender, he has no CVA tenderness and the mild pain he describes in his low back bilaterally is not reproducible on exam. Given he has had difficulty urinating with reduced urine output recently catheter is placed today by RN which is successful but has limited urine output that is turbid appearing. Urine studies are consistent with a urinary tract infection. Discussed options with the patient and his and plan to leave the catheter in place until his urology appointment in 1 week's time next , he is strongly encouraged to drink plenty of fluids as he chronically drinks very little 8 to 40 oz of water a day per his and per patient. He is placed on a 7 day course of cefpodoxime. Urine is sent for culture. Did review the patient's previous urine studies and visits for this and he has had multiple cultures come back with mixed hannah. Glad he is seeing Urology next week as he does need further evaluation for what I suspect is probably a chronic UTI. Patient was provided with instructions regarding outpatient care of his catheter, he has had a catheter previously as an outpatient. Return precautions provided, follow-up plan discussed, all questions answered. <Jv Ray MD - Last Filed: 06/09/23 08:13> Lab Data Labs: Lab Results 06/08/23 Range/Units 13:53 Urine Color Yellow Urine Appearance Cloudy Urine pH 7.5 (4.5-8.0) Ur Specific [place] 1.025 (1.000-1.035) Urine Protein 3+ H (Negative) Urine Glucose (UA) Negative (Negative) g/dL Urine Ketones Negative (NEGATIVE) Urine Occult Blood 3+ H (Negative) Urine Nitrate Positive H (Negative) Urine Bilirubin Negative (NEGATIVE) Urine Urobilinogen 1.0 (0.2) E.U./dL Ur Leukocyte Esterase 3+ H (NEGATIVE) Urine RBC 30-100/hpf H (0-5/HPF) Urine WBC >100/hpf H (0-5/HPF) Ur Squamous Epith Cells 1-5 /hpf (0-5/HPF) Triple Phos Crystals Moderate Urine Bacteria None seen (None) Ur Culture Indicated? Specimen cultured Vol Urine Centrifuged 10ml (spun) Discharge Plan Departure Patient Disposition: Home Clinical Impression: Acute UTI, Acute urinary retention Activity Restrictions/Additional Instructions: *You have been diagnosed with [acute UTI, mild urinary retention] *What to do: *Please continue to take your regular medications as directed. [1 ] New medication prescriptions sent to your pharmacy: [Cefpodoxime] [ ] New medication written as a paper prescription [ ] No new medications given *Please follow up with your primary care provider in 2-3 days, call for an appointment. Let them know you were seen in the Emergency Department and that we ask that you be seen in follow up. We will electronically transmit a record of today's note if your PCP is in our system. Your urine today is very consistent with a prominent UTI, I have prescribed a medication called cefpodoxime, this does not interact with your dofetilide. You should take it for the full 7 day course, I am glad you are seeing Urology next week on as we have elected to leave your catheter that was placed today in the ER in place, I think this will be helpful for you to both push fluids and ensure you are getting all of your urine out over the next week to help this infection clear. We did send your urine for culture and will have those results back within a few days. Likely urology will want to take her catheter out at your visit but you can discuss this with them. If you develop worsening new or concerning symptoms do not hesitate to seek re-evaluation immediately. *If you do not have a primary care provider please contact the [facility] Resource line at [phone]. They will ask some questions about your medical history and help get you set up with a doctor in the community. *Return to Emergency Department if you should have any new, worsening or concerning symptoms, such as [fever greater than 101 F, shaking chills, worsening pain, persistent vomiting or other bothersome symptoms] Prescriptions: New cefpodoxime 200 mg tablet 200 mg PO BID 7 Days Qty: 14 0RF Rx Instructions: must administer with a meal/food No Action albuterol sulfate [Ventolin HFA] 90 mcg/actuation HFA aerosol inhaler 2 puff INHALATION Q4-6H PRN (Reason: shortness of breath or wheezing) Qty: 18 3RF fluticasone propionate [Flovent HFA] 110 mcg/actuation HFA aerosol inhaler 2 puff inhalation BID Qty: 12 11RF Pulmicort Flexhaler 90 mcg/actuation aerosol powdr breath activated See Rx Instructions .ROUTE .COMPLEX Qty: 3 11RF Hold Instructions: Home Medication placed on hold at Doctor's office Dose Instruction: USE 2 INHALATIONS ORALLY TWICE DAILY Rx Instructions: USE 2 INHALATIONS ORALLY TWICE DAILY montelukast 10 mg tablet 10 mg PO ONCE PM Qty: 90 2RF ferumoxytol [Feraheme] 510 mg/17 mL (30 mg/mL) solution 510 mg IV Q3D Rx Instructions: administer at a rate of up to 1 mL /sec (30 mg /sec ), give over 30 minutes every 3-8 days times 2 doses sodium,potassium,mag sulfates [Suprep Bowel Prep Kit] 17.5-3.13-1.6 gram recon soln See Rx Instructions PO .COMPLEX Qty: 354 0RF Rx Instructions: take as directed by Physician metoprolol tartrate 25 mg tablet 25 mg PO .qday apixaban [Eliquis] 5 mg tablet 5 mg PO BID losartan 50 mg tablet 50 mg PO DAILY potassium chloride 20 mEq tablet extended release 20 meq PO BID dofetilide 250 mcg capsule 250 mcg PO Q12H felodipine 5 mg tablet extended release 24 hr 5 mg PO DAILY Referrals: Arlene Jarquin MD [Primary Care Provider] - Stand Alone Forms: Patient Portal/API ED Sign-out <Jv Ray MD - Last Filed: 06/09/23 08:13> [facility] I was immediately available in the department for consultation. ?This documentation has been reviewed and I agree with assessment and plan. Supervised by Jv Ray MD
[2023-06-08 14:06] LABS: Appearance Urine UA CLOUDY; Bilirubin Urine UA NEGATIVE (NEGATIVE); Color Urine UA YELLOW; Glucose Urine UA NEGATIVE (Negative); Ketones Urine UA NEGATIVE (NEGATIVE); Leukocyte Esterase Urine UA 3+ (NEGATIVE); Nitrite Urine UA POSITIVE (Negative); Occult Blood Urine UA 3+ (Negative); Protein Urine UA 3+ (Negative); Specific Gravity Urine UA 1.025 (1.000-1.035); pH Urine UA 7.5 (4.5-8.0)
[2023-06-08 14:19] LABS: Bacteria Urine None Seen; RBC Urine 30-100/HPF (0-5/HPF); Squamous Epithelial Cell Urine 1-5 /HPF (0-5/HPF); Urine Volume 10mL (spun); WBC Urine >100/HPF (0-5/HPF)
[2023-06-08 14:20] LABS: Culture Indicated Urine Specimen Cultured; Triple Phosphate Crystal Urine Moderate
[2023-06-08 15:45] VITALS: BP 149/72; PULSE 56; RESP 18; O2SAT 97
--- NOTE | 2023-06-08 16:15 | PC.NURSE ---
Patient and spouse given education on sherman care and cleaning. Acknowledged teaching, given leg bag and overnight bag for use.
== END 2023-06-08 16:11 | disposition home or self-care (01) ==
PROVIDERS: Emergency Provider Student in an Organized Health Care Education/Training Program; PCP Family Medicine
DX: N39.0 Urinary tract infection, site not specified (principal); R33.9 Retention of urine, unspecified
CPT/HCPCS: 51702; 51798; 81001; 87077; 87086; 87147; 87186; 99283

== ENCOUNTER 2023-06-09 20:25 | Emergency (ER) | payer MEDICARE, OTHER, SELFPAY ==
[2023-06-09 20:30] VITALS: BP 176/82; PULSE 68; RESP 20; TEMP 36.6; O2SAT 96; BMI 31.2
--- NOTE | 2023-06-09 23:12 | ED.GENADULT ---
HPI - General Adult General Chief complaint: Urogenital-Male Stated complaint: Blocked catheter,urinary leaking around catheter Time Seen by Provider: 06/09/23 21:26 Source: patient and EMS Mode of arrival: EMS History of Present Illness HPI narrative: 77-year-old gentleman with a history of atrial fibrillation anticoagulated on apixaban, prior partial TURP with episodes with urinary retention. He has had 3 episodes of bladder irritation that were initially presumed to be infectious however cultures have always grown at only mixed hannah. He was seen in the emergency department yesterday with dysuria, initial urine dip suggested urinary tract infection and due to the difficulty in urinating a Parra catheter was placed. He comes back in this evening because there is urine and some blood leaking around the Parra catheter. He also notices significant bladder spasms and he has been having clots in his urine. Blood clots were noticed initially and presumed to be secondary to his apixaban. He is taking his cefpodoxime. He describes no fevers, abdominal pain, flank pain, nausea, vomiting. Related Data Home Medications Medication Instructions Recorded Confirmed apixaban 5 mg tablet (Eliquis) 5 mg PO BID 09/26/17 06/05/23 metoprolol tartrate 25 mg tablet 25 mg PO .qday 09/26/17 06/05/23 dofetilide 250 mcg capsule 250 mcg PO Q12H 04/11/18 06/05/23 losartan 50 mg tablet 50 mg PO DAILY 04/11/18 06/05/23 potassium chloride 20 mEq 20 meq PO BID 04/11/18 06/05/23 tablet,extended release felodipine 5 mg tablet,extended 5 mg PO DAILY 05/21/18 06/05/23 release 24 hr Previous Rx's Medication Instructions Recorded albuterol sulfate 90 mcg/actuation 2 puff inhalation Q4-6H PRN 07/01/19 aerosol inhaler (Ventolin HFA) shortness of breath or wheezing #18 grams budesonide 90 mcg/actuation breath See Rx Instructions .Route 10/19/22 activated powder inhaler .COMPLEX #3 grams (Pulmicort Flexhaler) fluticasone propionate 110 2 puff inhalation BID #12 grams 01/30/23 mcg/actuation HFA aerosol inhaler (Flovent HFA) montelukast 10 mg tablet 10 mg PO ONCE PM #90 tabs 03/07/23 ferumoxytol 510 mg/17 mL (30 510 mg (17 mL) IV Q3D 2 doses 05/03/23 mg/mL) intravenous solution (Feraheme) sodium,potassium,mag sulfates 17.5 See Rx Instructions PO .COMPLEX 06/05/23 gram-3.13 gram-1.6 gram oral soln #354 mL (Suprep Bowel Prep Kit) cefpodoxime 200 mg tablet 200 mg PO BID UTI 7 days #14 tabs 06/08/23 Allergies Allergy/AdvReac Type Severity Reaction Status Date / Time ciprofloxacin Allergy Severe possible Verified 06/08/23 12:54 fatal reaction to Dofetilide, cardiac med Review of Systems Review of Systems Narrative: Pertinent positive and negative findings as per HPI Patient History Medical History UTI (urinary tract infection) Left bundle branch block MUNIRA (obstructive sleep apnea) Asthma Hay fever Ankle fracture, left Mumps Measles Chicken pox Hypertension (~1989) Atrial fibrillation (~2017) Surgical History S/P TURP History of hernia repair History of ankle joint replacement (~2017) History of partial knee replacement (~2014) Family History Father Cancer Mother Heart disease Hyperlipidemia Hypertension Stroke Social History marital status: special mariano needs: No Smoking Status: Never smoker second hand exposure: No alcohol intake: current substance use type: does not use Smoking Status: Never smoker alcohol intake frequency: 0-2 drinks per day Substance Use Type: does not use Exam Initial Vital Signs Initial Vital Signs: Vital Signs Temperature 97.9 F 06/09/23 20:30 Pulse Rate 68 06/09/23 20:30 Respiratory Rate 20 06/09/23 20:30 Blood Pressure 176/82 H 06/09/23 20:30 Pulse Oximetry 96 06/09/23 20:30 Oxygen Delivery Method Room Air 06/09/23 20:30 General: Alert appropriate in no acute distress Respiratory: Able to speak in full sentences, no obvious respiratory distress Skin: No obvious rashes, warm and dry Abdomen is nontender. No flank pain Parra catheter is in place. There is some minor leakage around the catheter. There appears to be a moderate amount of traction on the catheter due to placement of the leg securing device we will adjust this accordingly. There are blood clots in the red urine collecting in the catheter bag but continues to drain without any difficulties. Bladder scan shows only 10 cc of urine in the bladder currently Neurologic: Grossly intact no obvious asymmetries or abnormalities Psych: appropriate insight and affect, cooperative Course Vital Signs Vital signs: Vital Signs - 8 hr 06/09/23 20:30 Temperature 97.9 F Pulse Rate 68 Respiratory Rate 20 Blood Pressure 176/82 H Pulse Oximetry 96 Oxygen Delivery Method Room Air Medical Decision Making MDM Narrative Medical decision making narrative: CC: Leaking around Parra catheter Complicating co-morbidities: Concern for recurrent bladder infections however cultures are negative, anticoagulation secondary to AFib, acute urinary retention with Parra catheter in place Data collected from: patient, Medical records reviewed: Notes from ER visit yesterday as well as microbiology results for urinalysis back to November showing no evidence for acute bladder infection Differential considered: Bladder spasm, bleeding secondary to bladder spasm on Eliquis, urinary tract infection. Bladder clots obstructing catheter Exam documented above, pertinent findings include: Patient currently is in no acute distress. Catheter is draining appropriately blood clots are appreciated Lab Test results independently reviewed as above. Pertinent findings: Urine cultures currently pending Discussion: 77-year-old gentleman with a history of BPH, urinary retention, irritation and that has been diagnosed as urinary tract infections times at least 3 over the last 6 months none of which have had positive urine cultures. Comes in yesterday with dysuria and hematuria. He was started on cefpodoxime Parra catheter was placed due to acute urinary retention. He returns today because there is leakage around the catheter he is complaining about bladder spasm. Urine culture is not yet available. He is afebrile. The catheter was flushed and appears to be draining appropriately. Discussed the probability that the bladder spasm is causing some of his symptoms. He is given Pyridium in the emergency department and his has some that he can use at home. Parra catheter was not replaced but the leg attachment was readjusted so there was not quite as much tension on the catheter itself. Has a follow-up appointment with Urology scheduled for next week. At this point the catheter is draining appropriately, he is on antibiotics, cultures are pending, pain has been adequately controlled and he is safe for discharge home Discharge Plan Departure Patient Disposition: Home Clinical Impression: Bladder spasm Complication of Parra catheter Qualifiers: Encounter type: subsequent encounter Qualified Code(s): T83.9XXD - Unspecified complication of genitourinary prosthetic device, implant and graft, subsequent encounter Hematuria Qualifiers: Hematuria type: gross Qualified Code(s): R31.0 - Gross hematuria Instructions: How to Care for Your Parra Catheter -- Male Activity Restrictions/Additional Instructions: Thank you for coming in today The catheter does seem to be working appropriately and despite the clots that we are seeing is continuing to drain. The urine culture continues to grow and it is appropriate to continue the cefpodoxime for now I suspect that the pain that you are experiencing as well as the urine around the catheter is secondary to bladder spasm. I am not sure if that is from the catheter itself, infection or your bladder reacting to being decompressed. Using Pyridium, the [id number] azo for the next 2-3 days can help with that is spasm. Please do keep your appointment with Urology next week. If you find that you are getting worse or develop any new symptoms, please feel free to return to the emergency department for further evaluation. Prescriptions: No Action albuterol sulfate [Ventolin HFA] 90 mcg/actuation HFA aerosol inhaler 2 puff INHALATION Q4-6H PRN (Reason: shortness of breath or wheezing) Qty: 18 3RF fluticasone propionate [Flovent HFA] 110 mcg/actuation HFA aerosol inhaler 2 puff inhalation BID Qty: 12 11RF Pulmicort Flexhaler 90 mcg/actuation aerosol powdr breath activated See Rx Instructions .ROUTE .COMPLEX Qty: 3 11RF Hold Instructions: Home Medication placed on hold at Doctor's office Dose Instruction: USE 2 INHALATIONS ORALLY TWICE DAILY Rx Instructions: USE 2 INHALATIONS ORALLY TWICE DAILY montelukast 10 mg tablet 10 mg PO ONCE PM Qty: 90 2RF ferumoxytol [Feraheme] 510 mg/17 mL (30 mg/mL) solution 510 mg IV Q3D Rx Instructions: administer at a rate of up to 1 mL /sec (30 mg /sec ), give over 30 minutes every 3-8 days times 2 doses sodium,potassium,mag sulfates [Suprep Bowel Prep Kit] 17.5-3.13-1.6 gram recon soln See Rx Instructions PO .COMPLEX Qty: 354 0RF Rx Instructions: take as directed by Physician metoprolol tartrate 25 mg tablet 25 mg PO .qday apixaban [Eliquis] 5 mg tablet 5 mg PO BID losartan 50 mg tablet 50 mg PO DAILY potassium chloride 20 mEq tablet extended release 20 meq PO BID dofetilide 250 mcg capsule 250 mcg PO Q12H felodipine 5 mg tablet extended release 24 hr 5 mg PO DAILY cefpodoxime 200 mg tablet 200 mg PO BID 7 Days Qty: 14 0RF Rx Instructions: must administer with a meal/food Referrals: Arlene Jarquin MD [Primary Care Provider] - Stand Alone Forms: Patient Portal/API
--- NOTE | 2023-06-09 23:19 | PC.NURSE ---
Dr. Fried at bedside
[2023-06-09] MEDS: PHENAZOPYRIDINE 100 MG TABLET 200 MG PO (23:37)
[2023-06-09 23:55] VITALS: BP 178/85; PULSE 65; RESP 16; O2SAT 97
== END 2023-06-10 | disposition home or self-care (01) ==
PROVIDERS: Emergency Provider Emergency Medicine; PCP Family Medicine
DX: R31.0 Gross hematuria (principal); N32.89 Other specified disorders of bladder; T83.9XXA Unspecified complication of genitourinary prosthetic device, implant and graft, initial encounter; Z79.01 Long term (current) use of anticoagulants
CPT/HCPCS: 51700; 51798; 99283; 99284

== ENCOUNTER → 2023-06-16 08:14 | Outpatient (CLI) | payer MEDICARE, OTHER, SELFPAY ==
[2023-06-16 08:57] LABS: Appearance Urine UA CLOUDY; Color Urine UA ORANGE
[2023-06-16 08:58] LABS: RBC Urine 10-30/HPF (0-5/HPF); Urine Volume 10mL (spun); WBC Urine >100/HPF (0-5/HPF)
[2023-06-16 08:59] LABS: Bacteria Urine Many (>30); Culture Indicated Urine Specimen Cultured; Squamous Epithelial Cell Urine 1-5 /HPF (0-5/HPF)
== END ==
PROVIDERS: PCP Family Medicine; Visit Provider Urology
DX: N39.0 Urinary tract infection, site not specified (principal); N32.89 Other specified disorders of bladder; R31.9 Hematuria, unspecified
CPT/HCPCS: 81001; 87086

== ENCOUNTER → 2023-06-19 15:05 | Outpatient (CLI) | payer MEDICARE, OTHER, SELFPAY ==
[2023-06-19 17:31] LABS: BUN Creatinine Ratio 23.3 (6-22); Blood Urea Nitrogen 21 mg/dL (9-20); Calcium 9.5 mg/dL (8.4-10.2); Carbon Dioxide 22 mmol/L (22-32); Estimated Glomerular Filt Rate > 60 mL/min (>60); Glucose 132 mg/dL (80-110); HEMOLYSIS < 15 (0-50); Potassium 4.3 mmol/L (3.4-5.1); Sodium 137 mmol/L (137-145)
[2023-06-19 18:07] LABS: Chloride 108 mmol/L (98-107)
== END ==
PROVIDERS: PCP Family Medicine; Referring Provider Urology; Visit Provider Urology
DX: N39.0 Urinary tract infection, site not specified (principal)
CPT/HCPCS: 80048

== ENCOUNTER → 2023-06-20 13:16 | Outpatient (CLI) | payer MEDICARE, OTHER, SELFPAY ==
--- NOTE | 2023-06-20 13:17 | DI.CT.S_ITS ---
PROCEDURE: CT ABDOMEN PELVIS WO/W CON INDICATIONS: Recurrent urinary tract infection history of urinary calculi TECHNIQUE: Optional 5 mm thick noncontrast images acquired from the diaphragm to the symphysis pubis. After the administration of intravenous contrast, 5 mm thick images acquired from the diaphragm to the symphysis pubis after a 10-minute delay. 2 mm thick coronal and sagittal reformats were then performed of the kidneys and ureters. For radiation dose reduction, the following was used: automated exposure control, adjustment of mA and/or kV according to patient size. COMPARISON: [facility], CT, CT IVP, 05/30/2017, 16:51. [facility], CT, CT KUB, 09/01/2020, 14:43. FINDINGS: Image quality: Diagnostic. Kidneys and Ureters: Both kidneys are normal in size. No kidney stones. No hydronephrosis. Bilateral peripelvic cysts. No perinephric fat stranding. There is normal bilateral renal enhancement. Renal calyces appear normal in morphology when filled with contrast. Ureters are prominent compared to the prior exam. Bladder: Numerous large stones in the urinary bladder. A larger stone measuring 4.8 cm, (7/48), increased. Parra catheter in the bladder. OTHER: Lower chest: Small hiatal hernia. Liver: No solid mass. Gallbladder: No radiopaque gallstones or wall thickening. Biliary ducts: No biliary dilation. Pancreas: No ductal dilation. Spleen: Size is within normal limits. Adrenal Glands: No adrenal nodules. Stomach and Bowel: Normal colonic caliber, without significant wall thickening. Diverticulosis. Normal appendix. Peritoneum: No abnormal intraperitoneal fluid. No free air. Ventral Wall: No hernia. Abdominal Nodes: No retroperitoneal or mesenteric adenopathy by size criteria. Vessels: Aorta and inferior vena cava are normal in size. PELVIS: Pelvic Organs: Prostatomegaly. Pelvic Nodes: No enlarged lymph nodes. Miscellaneous: No inguinal hernias are seen. Bones: No aggressive osseous abnormality. IMPRESSION: 1. No kidney stones. No hydronephrosis. 2. No solid renal mass. 3. Suboptimal opacification of the ureters. Ureters are mildly prominent compared to the prior exams. 4. Numerous large stones in the bladder. Dictated by: Zhang Grya M.D. on 06/20/2023 at 15:22 Approved by: Zhang Gray M.D. on 06/20/2023 at 15:35
== END ==
PROVIDERS: PCP Family Medicine; Referring Provider Urology; Visit Provider Urology
DX: N39.0 Urinary tract infection, site not specified (principal); N21.0 Calculus in bladder; Z87.442 Personal history of urinary calculi
CPT/HCPCS: 74178; Q9967

== ENCOUNTER 2023-07-11 07:53 | Day surgery (SDC) | payer MEDICARE, OTHER, SELFPAY ==
[2023-07-05 15:05] VITALS: BMI 29.1
[2023-07-11] VITALS (14 sets, daily range): BP systolic 109–143; BP diastolic 48–88; PULSE 66–80; RESP 12–21; TEMP 36.6–37.2; O2SAT 69–98; BMI 29.1
[2023-07-11] MEDS: LACTATED RINGERS 1,000 ML 21 ML IV ×2 (08:42→12:11)
--- NOTE | 2023-07-11 09:18 | PM.PREOP ---
Pre-operative Note COVID-19 COVID-19 status: Not tested Interval Note History & Physical reviewed/Exam performed by Physician: Yes Changes to H&P: No
[2023-07-11] MEDS: CEFAZOLIN 2 GM/100 ML PREMIX 100 ML IV (10:10)
--- NOTE | 2023-07-11 10:21 | SUR.OPER ---
Lithotomy on padded OR bed, head on pillow, right arm secured on padded arm board at <90 degrees abduction, left arm padded and tucked. Legs secured in padded yellow fins stirrups.
--- NOTE | 2023-07-11 10:26 | SUR.OPER ---
Supine on padded OR bed, head on pillow, right arm secured on padded arm board at <90 degrees abduction, left arm padded and tucked, legs uncrossed, pillow underneath knees, tape over blanket over lower legs.
[2023-07-11] MEDS: BUPIVACAINE LIPOSOME 266 MG/20 ML VIAL INJ (10:29)
[2023-07-11] MEDS: [UNRECOGNIZED DRUG - OTHER] 3000 ML IRR (11:21)
[2023-07-11] MEDS: BUPIVACAINE 0.25% (PF) VIAL 10 ML INJ (13:20)
[2023-07-11] MEDS: ROPIVACAINE 0.5% PF 5 MG/ML 20ML VIAL 10 ML INJ (13:30)
--- NOTE | 2023-07-11 13:54 | PM.OP.1 ---
Procedure & Clinicians Procedure: Open cystolithotomy with antegrade and retrograde flexible cystoscopy and removal of prostate and urethral stones in addition to the large volume of bladder stones, open placement of suprapubic tube. Same procedure as scheduled: Yes Indications: This 78-year-old gentleman presented with complaints of gross hematuria urinary retention recurring urinary tract infections over protected. Of time. Through imaging and cystoscopy was revealed to have urethral stones as well as a bladder which was completely filled with calculi. That is at this time for the above procedures to rid him of his stone burden. He has no upper tract stones. Surgeon: Jv Boyd Click Yes if Unassisted: Yes Anesthesia Type: General Operative Notes Findings: Findings: Bladder was completely filled with stones of varying size ranging from approaching 10 cm to a cm or smaller. At the end of the procedure the bladder urethra and prostatic fossa had been cleared of stones. There were stones in the prostate which was enlarged but appeared resected. There were stones in the urethra which were also impacted. The bladder exhibited inflammatory changes, bullous edema, thickening of the bladder wall. Prostate did appear to bulge somewhat into the bladder the ureteral orifices were not observed but urine output was noted. Again in the prostatic fossa which was resected there were numerous stones ranging in size from 1-2 cm to slightly smaller and then smaller stones in the proximal bulbar urethra. Otherwise normal anatomy was observed. At the end of the procedure a 18 [place] silicone catheter was placed by open technique as an SP tube. The patient was left without a urethral Parra catheter. Of note the patient had had an inguinal hernia repair and mesh could be palpated but was not seen on the right side. Closure Type: primary Specimen(s): other (Bladder prostate and urethral stones) Prosthetic devices, grafts, tissues, transplants, or devices: 18 [place] Citizen silicone catheter [address] as an SP tube with 10 cc in balloon Applied: catheter ([address] [place] Citizen silicone [address] 10 cc in balloon as SP tube) Estimated Blood Loss (mL): 25 Blood products transfused: none Procedure in detail: Procedure in detail: After informed consent was obtained, the patient was identified and brought to the operating room where he was placed in the supine position on the table. Once on the table anesthesia was induced and maintained. Ensuring an adequate level of anesthesia the patient was prepped, draped, prepared for open cystolithotomy and flexible cystoscopy. After prepping, draping, ensuring an adequate level of anesthesia, time-out and administration of antibiotics a incision was made in the lower abdomen midline from approximately the upper margin of the pubic bone to just below the umbilicus. The dissection was carried down in through the subcutaneous fat and onto the fascia. The linea alba was then incised in the midline and retropubic space was bluntly developed and the bladder exposed. Bookwalter retractor was put in place and exposure obtained. The stones were readily palpable and in the midline using electrocautery the bladder was entered. The wound was irrigated with irrigant throughout the course of the procedure. After entering the bladder the incision was extended vertically and a ring forceps inserted and stones grasped 1 x 1 and were removed. The bladder was then digitally explored and further stones were removed to let appeared that the bladder was free of stones. In the proximal prostate bladder neck there were some smaller stones which were able to be removed manually. The flexible cystoscope at this point was then inserted in an antegrade fashion into the prostatic fossa and further stones were observed. They were beyond the reach of the finger and too large to put in a standard cystoscopic and or ureteroscopic basket. Therefore in a retrograde fashion the scope was passed through the urethra to the level in the larger stones were pushed into the bladder and removed. In the urethra there were smaller stones which were adherent and these were worked free with the scope and eventually basket it. This was an extended and tedious process but at the end of the procedure the prostate urethra and bladder were free of stones. Again the wound was irrigated with irrigant and attention was given to placing the SP tube. In the right lower quadrant a stab incision was made and a tonsil clamp was passed through the abdominal wall and the silicone catheter grasped and brought into the operative area. A right angle was then passed through the wall of the bladder anteriorly to the right of the midline cystotomy and the catheter passed into the bladder. The balloon was inflated and a pursestring of 2-0 chromic was placed on the exterior bladder wall. The balloon was then let down till after the bladder was closed. The suprapubic tube was in attached to the skin with a 2-0 nylon. Attention was then turned to closing the bladder. The bladder mucosa was reapproximated with a running 2-0 chromic gut suture. Detrusor was then closed in 2 layers with 1. Vicryl the 2nd layer imbricating over the top of the 1st. With the bladder close the wound was once again irrigated and attention turned to the fascial closure which was done with a running 1. PDS. The subcutaneous tissues were reapproximated with a running 2-0 Vicryl in the skin edges with a subcuticular 4-0 Monocryl. Mastisol Steri-Strips Telfa and Medipore tape were then applied a drain sponge was placed around the SP tube. In the catheter was placed to gravity drainage. As it was close the fascia and the tissues were infiltrated with 20 cc of Exparel. The skin edges were infiltrated with 0.5% plain bupivacaine. The patient had tolerated the procedure well and he was awakened to be transferred to the postop anesthesia care unit for recovery where he will be discharged to home. Patient will follow-up in my office on and then in 10-14 days. The patient tolerated the procedure well there were no complications. Complications: none Post-operative Condition: stable Disposition: PACU Plan for aftercare: Patient is to be discharged to home to follow up my office on for a postop check and then in 10-14 days. He is going home with the suprapubic tube which is to not be removed.
[2023-07-11] MEDS: OXYCODONE IR 5 MG TABLET PO ×2 (14:24→15:30)
[2023-07-11] MEDS: ACETAMINOPHEN 325 MG TABLET 650 MG PO (14:33)
[2023-07-11] MEDS: OXYBUTYNIN 5 MG TABLET PO (14:33)
[2023-07-11] MEDS: PHENAZOPYRIDINE 100 MG TABLET 200 MG PO (14:33)
[2023-07-11] MEDS: HYDROMORPHONE 1 MG INJ IV ×2 (14:38→14:43)
[2023-07-18 19:14] LABS: Carbonate Apatite 20 % (.); Magnesium ammon phos 80 % (.); Size 47x34 mm (.)
== END 2023-07-11 16:34 | disposition home or self-care (01) ==
PROVIDERS: PCP Family Medicine; Referring Provider Urology; Visit Provider Urology
PROC: (CPT 51050; principal; 2023-07-11 09:15)
DX: N21.0 Calculus in bladder (principal); R33.9 Retention of urine, unspecified; Z90.79 Acquired absence of other genital organ(s); N21.1 Calculus in urethra; N42.0 Calculus of prostate
CPT/HCPCS: 51050; 51040; 82365; C9290; J0690; J1170; J1885; J2405; J2704; J3010; J3490

== ENCOUNTER → 2023-07-31 11:07 | Outpatient (CLI) | payer MEDICARE, OTHER, SELFPAY | PROVIDERS: PCP Family Medicine; Visit Provider Urology | DX: R33.9 Retention of urine, unspecified (principal) | CPT/HCPCS: 87077; 87086; 87186 ==

== ENCOUNTER → 2023-08-08 10:42 | Outpatient (CLI) | payer MEDICARE, OTHER, SELFPAY ==
--- NOTE | 2023-08-08 10:43 | DI.RAD.S_ITS ---
PROCEDURE: FL CYSTOGRAM INDICATIONS: Bladder surgery COMPARISON: [facility], CT, CT KUB, 09/01/2020, 14:43. [facility], CT, CT ABDOMEN PELVIS WO/W CON, 06/20/2023, 13:33. FINDINGS: A Parra catheter is present. Bony structures are unremarkable. Cystigraphin was instilled into the urinary bladder via gravity asked patient tolerated. Approximately 200 cc contrast was used. The patient was examined under fluoroscopy in AP position with different obliquity. Bladder: The filled bladder appears irregular in contour with mild trabeculations. No contrast leak. A small 0.8 cm hyperdensity in the left side of the urinary bladder correlates with CT finding of a small calcification. No vesicoureteral reflux or contrast extravasation. A few hyperdensity in the superior aspect of the bladder may be small residual stones or artifacts. Postvoid: No significant postvoid residual. IMPRESSION: 1. Bladder wall is irregular with mild trabeculation. No bladder leak is identified. 2. A 0.8 cm hypodensity left of the bladder correlates with a calcification seen on the comparison CT. 3. No vesicoureteral reflux. Dictated by: Angie Bui M.D. on 08/11/2023 at 9:55 Approved by: Angie Bui M.D. on 08/11/2023 at 10:06
== END ==
PROVIDERS: PCP Family Medicine; Referring Provider Urology; Visit Provider Urology
DX: N32.89 Other specified disorders of bladder (principal); Z98.890 Other specified postprocedural states
CPT/HCPCS: 51600; 74430; Q9958

== ENCOUNTER → 2023-08-15 13:35 | Outpatient (CLI) | payer MEDICARE, OTHER, SELFPAY | PROVIDERS: PCP Family Medicine; Visit Provider Urology | DX: R39.9 Unspecified symptoms and signs involving the genitourinary system (principal) | CPT/HCPCS: 87086 ==

== ENCOUNTER → 2023-08-23 15:20 | Outpatient (CLI) | payer MEDICARE, OTHER, SELFPAY | PROVIDERS: PCP Family Medicine; Visit Provider Urology | DX: R33.9 Retention of urine, unspecified (principal); N21.0 Calculus in bladder; Z98.890 Other specified postprocedural states; Z43.5 Encounter for attention to cystostomy | CPT/HCPCS: 51798; 81002; 87086 ==

== ENCOUNTER → 2023-09-01 11:01 | Outpatient (CLI) | payer MEDICARE, OTHER, SELFPAY | PROVIDERS: PCP Family Medicine; Visit Provider Urology | DX: N39.0 Urinary tract infection, site not specified (principal); N21.0 Calculus in bladder; R39.9 Unspecified symptoms and signs involving the genitourinary system; Z98.890 Other specified postprocedural states; Z90.79 Acquired absence of other genital organ(s) | CPT/HCPCS: 81002; 87077; 87086; 87186 ==

== ENCOUNTER → 2023-09-07 10:31 | Outpatient (CLI) | payer MEDICARE, OTHER, SELFPAY ==
[2023-09-07 21:01] LABS: Blood Urea Nitrogen 21 mg/dL (9-20); Calcium 9.1 mg/dL (8.4-10.2); Carbon Dioxide 29 mmol/L (22-32); Chloride 105 mmol/L (98-107); Estimated Glomerular Filt Rate > 60 mL/min (>60); Glucose 78 mg/dL (80-110); HEMOLYSIS < 15 (0-50); Potassium 4.5 mmol/L (3.4-5.1); Sodium 139 mmol/L (137-145)
== END ==
PROVIDERS: PCP Family Medicine; Referring Provider Internal Medicine Cardiovascular Disease; Visit Provider Internal Medicine Cardiovascular Disease
DX: Z79.899 Other long term (current) drug therapy (principal)
CPT/HCPCS: 36415; 80048

== ENCOUNTER → 2023-09-11 13:22 | Outpatient (CLI) | payer MEDICARE, OTHER, SELFPAY | PROVIDERS: PCP Family Medicine; Visit Provider Urology | DX: R39.9 Unspecified symptoms and signs involving the genitourinary system (principal) | CPT/HCPCS: 87086 ==

== ENCOUNTER → 2023-10-03 15:18 | Outpatient (CLI) | payer MEDICARE, OTHER, SELFPAY | PROVIDERS: PCP Family Medicine; Visit Provider Urology | DX: R39.9 Unspecified symptoms and signs involving the genitourinary system (principal) | CPT/HCPCS: 87077; 87086; 87186 ==

== ENCOUNTER → 2023-10-20 13:06 | Outpatient (CLI) | payer MEDICARE, OTHER, SELFPAY ==
--- NOTE | 2023-10-20 13:09 | DI.CT.S_ITS ---
PROCEDURE: CT KIDNEY URETER BLADDER (KUB) INDICATIONS: RECURRENT UTI TECHNIQUE: Axial sections were acquired from the lung bases to the pubic symphysis. Coronal and sagittal reformats were performed. For radiation dose reduction, the following was used: automated exposure control, adjustment of mA and/or kV according to patient size. COMPARISON: [facility], CT, CT ABDOMEN PELVIS WO/W CON, 06/20/2023, 13:33. FINDINGS: Image quality: Diagnostic. Lower Chest: No significant findings. URINARY: Right Kidney: No stones or hydronephrosis. Hydronephrosis previously present has resolved. Right Ureter: No hydroureter. Left Kidney: Previous hydronephrosis has resolved. There are peripelvic cysts. No stones. Left Ureter: No hydroureter. Bladder: The extensive previous bladder stones have been removed. Bladder wall thickening. marked prostatomegaly. Cannot exclude intrinsic bladder wall mass. ABDOMEN: Liver: No contour-deforming solid mass. Gallbladder: No radiopaque gallstones or wall thickening. Biliary ducts: No biliary dilation. Pancreas: No ductal dilation. Spleen: Size is within normal limits. Adrenal Glands: No adrenal nodules. Stomach and Bowel: Normal colonic caliber, without significant wall thickening. Moderate sigmoid diverticulosis without evidence of acute diverticulitis. Peritoneum: No abnormal intraperitoneal fluid. No free air. Ventral Wall: No hernia. Abdominal Nodes: No enlarged retroperitoneal or mesenteric lymph nodes. Vessels: Aorta and inferior vena cava are normal in size. PELVIS: Pelvic Organs: Marked prostatomegaly.. Pelvic Nodes: Unremarkable. Miscellaneous: No inguinal hernias are seen. Large right hydrocele. Bones: Lumbar degenerative change. No lytic or blastic bony lesions. No compression fractures. IMPRESSION: 1. There is marked prostatomegaly. Cannot also exclude a bladder wall mass. 2. Interval removal of innumerable large bladder stones. 3. Bladder wall thickening. 4. Resolution of bilateral hydronephrosis. 5. Large hydrocele in the right hemiscrotum. Dictated by: Jamel Sparks M.D. on 10/20/2023 at 15:56 Approved by: Jamel Sparks M.D. on 10/20/2023 at 16:20
== END ==
PROVIDERS: PCP Family Medicine; Referring Provider Internal Medicine Infectious Disease; Visit Provider Internal Medicine Infectious Disease
DX: N40.0 Benign prostatic hyperplasia without lower urinary tract symptoms (principal); N43.3 Hydrocele, unspecified; N39.0 Urinary tract infection, site not specified; N20.0 Calculus of kidney; K57.30 Diverticulosis of large intestine without perforation or abscess without bleeding
CPT/HCPCS: 74176

== ENCOUNTER → 2023-10-24 14:29 | Outpatient (CLI) | payer MEDICARE, OTHER, SELFPAY | PROVIDERS: PCP Family Medicine; Visit Provider Urology | DX: R39.9 Unspecified symptoms and signs involving the genitourinary system (principal) | CPT/HCPCS: 87086 ==

== ENCOUNTER 2023-11-14 07:56 | Day surgery (SDC) | payer MEDICARE, OTHER, SELFPAY ==
[2023-11-08 12:01] VITALS: BMI 29.1
[2023-11-14 08:23] VITALS: BP 149/83; PULSE 67; RESP 19; TEMP 36.9; O2SAT 97
[2023-11-14 08:24] VITALS: BMI 30.5
[2023-11-14] MEDS: LACTATED RINGERS 1,000 ML 42 ML IV (08:39)
--- NOTE | 2023-11-14 09:22 | PM.PREOP ---
Pre-operative Note COVID-19 COVID-19 status: Not tested Interval Note History & Physical reviewed/Exam performed by Physician: Yes Changes to H&P: No
[2023-11-14] MEDS: ERTAPENEM 1 GM in SODIUM CHLORIDE 0.9% 100 ML IV (09:48)
--- NOTE | 2023-11-14 10:07 | SUR.OPER ---
Lithotomy on padded OR bed, head on pillow, arms secured on padded arm boards at <90 degrees abduction. Legs secured in padded yellow fins stirrups.
[2023-11-14 10:38] VITALS: BP 146/87; PULSE 75; RESP 9; TEMP 36.4; O2SAT 99
[2023-11-14 10:46] VITALS: BP 159/82; PULSE 75; RESP 13; O2SAT 98
[2023-11-14 10:49] VITALS: BP 156/80; PULSE 70; RESP 18; O2SAT 99
[2023-11-14 10:54] VITALS: BP 151/81; PULSE 70; RESP 14; O2SAT 98
[2023-11-14 10:58] VITALS: BP 152/83; PULSE 69; RESP 15; TEMP 36.3; O2SAT 98
--- NOTE | 2023-11-14 11:04 | P.OP_ITS ---
Procedure & Clinicians Procedure: Cystolitholapaxy mechanical evacuation of stone fragments Same procedure as scheduled: Yes Indications: This 78-year-old male who had recently undergone open cystolithotomy healed underwent surveillance cystoscopy and was found to have at least 1 remaining larger stone presents this time for cystolitholapaxy to clear his stones. Surgeon: Jv Boyd Click Yes if Unassisted: Yes Anesthesia Type: General Operative Notes Findings: Urethral meatus is normal urethra is normal along its length with normal mucosa the sphincter as well coapted. The prostate is resected but has some regrowth especially on the patient's right. There is some bullous edema and serpiginous varices on the prostate which is elongated and does have some but wishing into the bladder. The ureteral orifices normal position with clear efflux. There is a single yellow-gordon stone which is fragmented and removed in its entirety. In the mucosa there were a couple of fragments that were superficially imbedded which were removed with electrocautery. The bladder exhibits severe trabeculation cellules. And the bladder appears well healed from the open cystolithotomy. Closure Type: not applicable Specimen(s): other (Stone fragments) Prosthetic devices, grafts, tissues, transplants, or devices: None Estimated Blood Loss (mL): 15 Blood products transfused: none Procedure in detail: Procedure in detail: After informed consent was obtained, the patient is identified brought to the operating room where he was placed in supine position on the table. Once there anesthesia was induced and maintained.. Ensuring an adequate level of anesthesia the patient was transitioned to the lithotomy position where he was prepped, draped and prepared for Transurethral procedure appearing after prepping, draping, antibiotics, ensuring an adequate level of anesthesia and time-out a 22 [place] cystoscope was passed through the urethral prostate into the bladder where cystoscopy was performed. The stone was identified the mechanical lithotrite inserted in the stone crushed. The stone fragments were then evacuated. There were a couple of points of bleeding on the prostate which were controlled with the Bugbee electrode. And then using the Bugbee electrode the 3 superficial stone fragments were extirpated from the surface of the prostate and evacuated. This point the bladder was filled drained filled drained fragments were removed forward to pathology for compositional analysis. Hemostasis appeared to be good the bladder was drained the scope was removed and the patient was awakened having tolerated the procedure well to be transferred to the postanesthesia care unit for recovery there were no complications Complications: none Post-operative Condition: stable Disposition: PACU Plan for aftercare: Patient to follow up my office in approximately 14 days.
[2023-12-15 10:13] LABS: Ca oxalate dihydrate 5 % (.); CaHPO4 (Brushite) 10 % (.); Hydroxyapatite 85 % (.); Size 4x4 mm (.)
== END 2023-11-14 11:32 | disposition home or self-care (01) ==
PROVIDERS: PCP Family Medicine; Referring Provider Urology; Visit Provider Urology
PROC: 0TCB8ZZ Extirpation of Matter from Bladder, Via Natural or Artificial Opening Endoscopic (ICD-10-PCS; CPT 52317; principal; 2023-11-14 09:30)
DX: N21.0 Calculus in bladder (principal)
CPT/HCPCS: 52317; 82365; J1100; J1335; J2405; J2704; J3010

== ENCOUNTER → 2024-04-29 15:05 | Outpatient (CLI) | payer MEDICARE, OTHER, SELFPAY ==
--- NOTE | 2024-04-29 15:07 | DI.RAD.S_ITS ---
PROCEDURE: XR KUB INDICATIONS: Rule out recurrent calculi TECHNIQUE: One view of the abdomen acquired. COMPARISON: [facility], CT, CT KIDNEY URETER BLADDER (KUB), 10/20/2023, 13:19. . FINDINGS: Surgical changes and devices: None. Bowel: Bowel gas pattern is normal. Soft tissues: No suspicious abdominal calcifications. Visualized solid organ contours appear normal in size. Bones: No suspicious bony lesions. IMPRESSION: No acute abnormality. No nephrolithiasis visualized Dictated by: Clint Gallegos M.D. on 04/29/2024 at 18:27 Approved by: Clint Gallegos M.D. on 04/29/2024 at 18:28
== END ==
PROVIDERS: PCP Family Medicine; Referring Provider Urology; Visit Provider Urology
DX: Z87.442 Personal history of urinary calculi (principal); Z09 Encounter for follow-up examination after completed treatment for conditions other than malignant neoplasm
CPT/HCPCS: 74018

== ENCOUNTER → 2024-06-21 09:19 | Outpatient (CLI) | payer MEDICARE, OTHER, SELFPAY ==
[2024-06-21 10:18] LABS: Add Manual Diff / Slide Review NO; Basophils Absolute Auto 100 /uL (0-100); Basophils Percent Auto 1.3 % (0-2); Eosinophils Absolute Auto 800 /uL (0-450); Eosinophils Percent Auto 10.7 % (2-4); Hematocrit 28.5 % (41-53); Hemoglobin 8.9 g/dL (13.5-17.5); Lymphocytes Absolute Auto 1200 /uL (1100-4500); Lymphocytes Percent Auto 16.4 % (25-40); Mean Corpuscular HGB Conc 31.3 % (30-36); Mean Corpuscular Hemoglobin 24.5 PG (26-34); Mean Corpuscular Volume 78.3 fL (80-100); Monocytes Absolute Auto 1400 /uL (0-900); Neutrophils Absolute Auto 4000 /uL (1500-7000); Neutrophils Percent Auto 52.6 % (50-75); Platelet Count 576 X10^3/uL (150-400); Red Blood Cell Count 3.64 X10^6/uL (4.5-5.9); Red Cell Distribution Width 18.4 % (11.6-14.8); White Blood Cell Count 7.5 X10^3/uL (4.5-11.0)
[2024-06-21 10:25] LABS: Hemoglobin A1C% w Est Avg Glu 5.1 % (4.0-6.0)
[2024-06-21 10:46] LABS: Alanine Aminotransferase 18 IU/L (<50); Albumin Globulin Ratio 1.6 (1.0-2.8); Alkaline Phosphatase 77 U/L (38-126); Aspartate Aminotransferase 22 IU/L (17-59); BUN Creatinine Ratio 28.7 (6-22); Bilirubin Total 0.8 mg/dL (0.2-1.3); Blood Urea Nitrogen 27 mg/dL (9-20); Calcium 9.2 mg/dL (8.4-10.2); Carbon Dioxide 25 mmol/L (22-32); Chloride 106 mmol/L (98-107); Cholesterol 142 mg/dL (140-199); Estimated Glomerular Filt Rate > 60 mL/min (>60); Globulin 2.5 g/dL (1.7-4.1); Glucose 96 mg/dL (80-110); HDL Cholesterol 51 mg/dL (40-60); HEMOLYSIS < 15 (0-50); LDL Cholesterol Calculated 78 mg/dL (<100); Potassium 4.2 mmol/L (3.4-5.1); Sodium 139 mmol/L (137-145); Total Protein 6.5 g/dL (6.3-8.2); Triglycerides 64 mg/dL (35-150)
[2024-06-21 11:12] LABS: Thyroid Stimulating Hormone 2.33 uIU/mL (0.47-4.68)
== END ==
LOC: LAB 09:22
PROVIDERS: PCP Family Medicine; Referring Provider Internal Medicine Cardiovascular Disease; Visit Provider Internal Medicine Cardiovascular Disease
DX: I48.0 Paroxysmal atrial fibrillation (principal); Z79.899 Other long term (current) drug therapy
CPT/HCPCS: 36415; 80053; 80061; 83036; 84443; 85025

== ENCOUNTER 2024-07-22 10:52 | Day surgery (SDC) | payer MEDICARE, OTHER, SELFPAY ==
--- NOTE | 2024-07-22 12:16 | PM.HP.IH.1 ---
History of Present Illness History of Present Illness Date Patient Seen: 07/22/24 Chief complaint: [facility] Medical History Monilial rash Bladder calculi History of recurrent UTIs Incomplete emptying of bladder Urinary retention Lower urinary tract symptoms History of urinary calculi Recurrent urinary tract infection Hydrocele, unspecified UTI (urinary tract infection) Left bundle branch block MUNIRA (obstructive sleep apnea) Asthma Hay fever Ankle fracture, left Mumps Measles Chicken pox Hypertension (~1989) Atrial fibrillation (~2017) Surgical History History of urologic surgery (07/11/23) History of bladder surgery Status post repair of hydrocele Hx of prostatectomy S/P TURP History of hernia repair History of ankle joint replacement (~2017) History of partial knee replacement (~2014) Family History Father Cancer Mother Heart disease Hyperlipidemia Hypertension Stroke Social History marital status: number of children: 1 household members: spouse lives independently: Yes occupational status: previously employed special mariano needs: No Smoking Status: Former smoker second hand exposure: No alcohol intake: former substance use type: does not use caffeine: No Meds Home Medications and Allergies Home Medications Medication Instructions Recorded Confirmed Type apixaban 5 mg tablet (Eliquis) 5 mg PO BID 09/26/17 07/22/24 History metoprolol tartrate 25 mg tablet 25 mg PO .qday 09/26/17 07/22/24 History dofetilide 250 mcg capsule 250 mcg PO Q12H 04/11/18 07/22/24 History losartan 50 mg tablet 50 mg PO DAILY 04/11/18 07/22/24 History potassium chloride 20 mEq 20 meq PO BID 04/11/18 07/22/24 History tablet,extended release felodipine 5 mg tablet,extended 5 mg PO DAILY 05/21/18 07/22/24 History release 24 hr albuterol sulfate 90 mcg/actuation 2 puff inhalation Q4-6H PRN 07/01/19 07/22/24 Rx aerosol inhaler (Ventolin HFA) shortness of breath or wheezing #18 grams furosemide 20 mg tablet 20 mg PO Q OTHER DAY 01/04/24 07/22/24 History montelukast 10 mg tablet 10 mg PO ONCE PM #90 tabs 07/01/24 07/22/24 Rx Allergies Allergy/AdvReac Type Severity Reaction Status Date / Time ciprofloxacin Allergy Severe possible Verified 07/17/24 14:05 fatal reaction to Dofetilide, cardiac med dofetilide Allergy Anaphylaxis Verified 07/17/24 14:05 Exam Narrative Exam Narrative: Oropharynx free of lesion Chest with expiratory wheeze throughout Assessment & Plan Assessment & Plan narrative: History of iron-deficiency anemia with need for EGD and colonoscopy. Unfortunately, he has had a acute respiratory illness over the last few days with significant cough. COVID testing is currently pending. Anesthesia feels that this would best be delayed until 10 days after his symptoms sheeba and he is back to baseline. We will instruct to get him back in touch with Dr. Sneed's office to reschedule. Time-Based Coding :: [TOTAL MINUTES] spent with patient and on the chart (including review of chart, obtaining history, exam, reviewing outside data, placing orders, documenting exam and treatment plan, and counseling patient) on [DATE]. PROFEE Budget Director Document charge(s): No
[2024-07-22 12:27] LABS: COVID-19 CEPHEID 4-PLEX PCR Negative (Negative); Influenza A - CEPHEID Flu A NEGATIVE (NEGATIVE); Influenza B - CEPHEID Flu B NEGATIVE (NEGATIVE); Respiratory Syncytial Virus Negative (Negative)
--- NOTE | 2024-07-22 12:52 | SUR.PREOP ---
Pt procedure cancelled due to new cough since last Mon, wheezes on admit and increase use of rescue inhalers which he does not normally do.
== END 2024-07-22 10:55 | disposition home or self-care (01) ==
PROVIDERS: PCP Family Medicine; Referring Provider Internal Medicine Gastroenterology; Visit Provider Internal Medicine Gastroenterology
DX: Z53.09 Procedure and treatment not carried out because of other contraindication (principal); Z11.52 Encounter for screening for COVID-19
CPT/HCPCS: 0241U

== ENCOUNTER → 2024-07-23 14:42 | Outpatient (CLI) | payer MEDICARE, OTHER, SELFPAY ==
[2024-07-23 14:59] LABS: Add Manual Diff / Slide Review NO; Basophils Absolute Auto 100 /uL (0-100); Basophils Percent Auto 0.8 % (0-2); Eosinophils Absolute Auto 400 /uL (0-450); Eosinophils Percent Auto 5.7 % (2-4); Hematocrit 23.4 % (41-53); Hemoglobin 7.2 g/dL (13.5-17.5); Lymphocytes Absolute Auto 1000 /uL (1100-4500); Lymphocytes Percent Auto 14.5 % (25-40); Mean Corpuscular HGB Conc 30.8 % (30-36); Mean Corpuscular Hemoglobin 21.6 PG (26-34); Mean Corpuscular Volume 70.1 fL (80-100); Monocytes Absolute Auto 1000 /uL (0-900); Monocytes Percent Auto 15.1 % (3-14); Neutrophils Absolute Auto 4300 /uL (1500-7000); Neutrophils Percent Auto 63.9 % (50-75); Platelet Count 560 X10^3/uL (150-400); Red Blood Cell Count 3.34 X10^6/uL (4.5-5.9); Red Cell Distribution Width 18.9 % (11.6-14.8); White Blood Cell Count 6.7 X10^3/uL (4.5-11.0)
== END ==
PROVIDERS: PCP Family Medicine; Referring Provider Family Medicine; Visit Provider Family Medicine
DX: D64.9 Anemia, unspecified (principal)
CPT/HCPCS: 36415; 85025

== ENCOUNTER 2024-07-29 13:22 | Emergency (ER) | payer MEDICARE, OTHER, SELFPAY ==
[2024-07-29] VITALS (34 sets, daily range): BP systolic 107–138; BP diastolic 55–81; PULSE 68–114; RESP 11–32; TEMP 36.6–36.9; O2SAT 93–100; BMI 33.3
--- NOTE | 2024-07-29 13:30 | DI.RAD.S_ITS ---
PROCEDURE: XR CHEST 1V INDICATIONS: Shortness of breath TECHNIQUE: One view of the chest was acquired. COMPARISON: None. FINDINGS: Surgical changes and devices: None. Lungs and pleura: No definite signs concerning for edema. Mild right basilar linear atelectasis versus scarring. Possible trace right pleural effusion versus pleural thickening.. Mediastinum: Mediastinal contours appear normal. Heart size is enlarged. Bones and chest wall: No suspicious bony lesions. Overlying soft tissues appear unremarkable. IMPRESSION: Cardiomegaly. Mild right basilar linear atelectasis versus scarring. Possible trace right pleural effusion versus pleural thickening. Dictated by: Francisco Castaneda M.D. on 07/29/2024 at 14:00 Approved by: Francisco Castaneda M.D. on 07/29/2024 at 14:01
--- NOTE | 2024-07-29 13:39 | EKG_ITS ---
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
[2024-07-29 13:48] LABS: Add Manual Diff / Slide Review NO; Basophils Absolute Auto 100 /uL (0-100); Basophils Percent Auto 1.2 % (0-2); Eosinophils Absolute Auto 400 /uL (0-450); Eosinophils Percent Auto 5.7 % (2-4); Hematocrit 24.3 % (41-53); Hemoglobin 7.2 g/dL (13.5-17.5); Lymphocytes Absolute Auto 1100 /uL (1100-4500); Lymphocytes Percent Auto 14.7 % (25-40); Mean Corpuscular HGB Conc 29.7 % (30-36); Mean Corpuscular Hemoglobin 20.4 PG (26-34); Mean Corpuscular Volume 68.8 fL (80-100); Monocytes Absolute Auto 1400 /uL (0-900); Monocytes Percent Auto 19.9 % (3-14); Neutrophils Absolute Auto 4200 /uL (1500-7000); Neutrophils Percent Auto 58.5 % (50-75); Platelet Count 645 X10^3/uL (150-400); Red Blood Cell Count 3.53 X10^6/uL (4.5-5.9); Red Cell Distribution Width 19.2 % (11.6-14.8); White Blood Cell Count 7.2 X10^3/uL (4.5-11.0)
[2024-07-29] MEDS: ALBUTEROL/IPRATROPIUM 3 ML AMPUL 9 ML INH (13:51)
[2024-07-29 13:56] LABS: INR 1.9 (0.9-1.3); Prothrombin Time 21.2 SECONDS (9.4-12.5)
[2024-07-29 14:00] LABS: Alanine Aminotransferase 21 IU/L (<50); Albumin Globulin Ratio 1.4 (1.0-2.8); Alkaline Phosphatase 87 U/L (38-126); Aspartate Aminotransferase 25 IU/L (17-59); BUN Creatinine Ratio 20.4 (6-22); Bilirubin Total 0.9 mg/dL (0.2-1.3); Blood Urea Nitrogen 21 mg/dL (9-20); Calcium 9.2 mg/dL (8.4-10.2); Carbon Dioxide 19 mmol/L (22-32); Chloride 107 mmol/L (98-107); Estimated Glomerular Filt Rate > 60 mL/min (>60); Globulin 2.8 g/dL (1.7-4.1); Glucose 117 mg/dL (80-110); HEMOLYSIS < 15 (0-50); Potassium 3.8 mmol/L (3.4-5.1); Sodium 140 mmol/L (137-145); Total Protein 6.8 g/dL (6.3-8.2)
[2024-07-29 14:01] LABS: Lactate (Lactic Acid) 4.1 mmol/L (0.7-2.1)
[2024-07-29 14:06] LABS: Anisocytosis 2+; Hypochromasia 2+; Microcytosis 2+
[2024-07-29 14:11] LABS: Schistocytes 1+
[2024-07-29 14:12] LABS: NT-proBNP (BNP-Adult 18+) 734 pg/mL (<450); Troponin I < 0.012 ng/mL (0.01-0.034)
[2024-07-29] MEDS: SODIUM CHLORIDE 0.9% 1,000 ML 1000 ML IV (14:52)
[2024-07-29 15:19] LABS: Reflexed Lactate in 2 Hours Y
--- NOTE | 2024-07-29 16:14 | ED.GENADULT ---
HPI - General Adult <Timoteo Valadez MD - Last Filed: 07/30/24 05:08> General Chief complaint: Shortness of Breath/Dyspnea Stated complaint: SOB, Anemia Time Seen by Provider: 07/29/24 14:30 Source: patient Mode of arrival: Ambulatory History of Present Illness HPI narrative: 79-year-old male with history of bladder stones removed 15 months ago, ongoing diagnosis of anemia for which he was recently scheduled for upper and lower endoscopy procedure that was canceled due to recent respiratory infection symptoms, complains of increased or shortness of breath last couple of days, no black or red stools. No nosebleeds. Denies pain to chest abdomen and pelvis. Denies fevers chills. Denies chest pain. Related Data Home Medications Medication Instructions Recorded Confirmed apixaban 5 mg tablet (Eliquis) 5 mg PO BID 09/26/17 07/22/24 metoprolol tartrate 25 mg tablet 25 mg PO .qday 09/26/17 07/22/24 dofetilide 250 mcg capsule 250 mcg PO Q12H 04/11/18 07/22/24 losartan 50 mg tablet 50 mg PO DAILY 04/11/18 07/22/24 potassium chloride 20 mEq 20 meq PO BID 04/11/18 07/22/24 tablet,extended release felodipine 5 mg tablet,extended 5 mg PO DAILY 05/21/18 07/22/24 release 24 hr furosemide 20 mg tablet 20 mg PO Q OTHER DAY 01/04/24 07/22/24 Previous Rx's Medication Instructions Recorded albuterol sulfate 90 mcg/actuation 2 puff inhalation Q4-6H PRN 07/01/19 aerosol inhaler (Ventolin HFA) shortness of breath or wheezing #18 grams montelukast 10 mg tablet 10 mg PO ONCE PM #90 tabs 07/01/24 Allergies Allergy/AdvReac Type Severity Reaction Status Date / Time ciprofloxacin Allergy Severe possible Verified 07/17/24 14:05 fatal reaction to Dofetilide, cardiac med dofetilide Allergy Anaphylaxis Verified 07/17/24 14:05 Patient History <Timoteo Valadez MD - Last Filed: 07/30/24 05:08> Medical History Monilial rash Bladder calculi History of recurrent UTIs Incomplete emptying of bladder Urinary retention Lower urinary tract symptoms History of urinary calculi Recurrent urinary tract infection Hydrocele, unspecified UTI (urinary tract infection) Left bundle branch block MUNIRA (obstructive sleep apnea) Asthma Hay fever Ankle fracture, left Mumps Measles Chicken pox Hypertension (~1989) Atrial fibrillation (~2017) Surgical History History of urologic surgery (07/11/23) History of bladder surgery Status post repair of hydrocele Hx of prostatectomy S/P TURP History of hernia repair History of ankle joint replacement (~2017) History of partial knee replacement (~2014) Family History Father Cancer Mother Heart disease Hyperlipidemia Hypertension Stroke Social History marital status: number of children: 1 household members: spouse lives independently: Yes occupational status: previously employed special mariano needs: No Smoking Status: Never smoker second hand exposure: No alcohol intake: former substance use type: does not use caffeine: No Smoking Status: Never smoker alcohol intake frequency: holidays/special occasions only Exam <Timoteo Valadez MD - Last Filed: 07/30/24 05:08> Narrative Exam Narrative: GENERAL: Well-developed patient, in mild distress. HEAD: Atraumatic. Normocephalic. EYES: Pupils equal round and reactive. Extraocular motions intact. No scleral icterus. No injection or drainage. ENT: Nose without bleeding, purulent drainage. Throat without erythema, tonsillar hypertrophy or exudate. Airway patent. NECK: Trachea midline. Non tender CARDIOVASCULAR: Regular rate and rhythm without murmurs, gallops, or rubs. RESPIRATORY: Clear to auscultation. Breath sounds equal bilaterally. No wheezes, rales, or rhonchi. GASTROINTESTINAL: Abdomen soft, non-tender, nondistended. EXTREMITIES: No edema or joint tenderness. BACK: Nontender without deformity or crepitance. No flank tenderness. NEURO: AOx3. Motor functions grossly nonfocal SKIN: No rash or erythema of visible areas Initial Vital Signs Initial Vital Signs: Vital Signs Temperature 97.9 F 07/29/24 13:24 Pulse Rate 103 H 07/29/24 13:24 Respiratory Rate 24 07/29/24 13:24 Blood Pressure 109/60 07/29/24 13:24 Pulse Oximetry 99 07/29/24 13:24 Oxygen Delivery Method Room Air 07/29/24 13:24 <Angel Bray DO - Last Filed: 07/29/24 23:04> Initial Vital Signs Initial Vital Signs: Vital Signs Temperature 97.9 F 07/29/24 13:24 Pulse Rate 103 H 07/29/24 13:24 Respiratory Rate 24 07/29/24 13:24 Blood Pressure 109/60 07/29/24 13:24 Pulse Oximetry 99 07/29/24 13:24 Oxygen Delivery Method Room Air 07/29/24 13:24 Course <Timoteo Valadez MD - Last Filed: 07/30/24 05:08> Orders Ordered: ED Orders 07/29/24 22:12 Hematocrit Stat Hemoglobin Stat Discontinued Medications Albuterol/Ipratropium (Albuterol/Ipratropium 3 Ml Ampul) 9 ml INH NOW ONE Stop: 07/29/24 13:50 Last Admin: 07/29/24 13:51 Dose: 9 ml Documented By: MARQUIS Furosemide (Furosemide 40 Mg/4 Ml Vial) 20 mg IV NOW ONE Stop: 07/29/24 18:49 Last Admin: 07/29/24 19:53 Dose: 20 mg Documented By: INÉS Sodium Chloride (Normal Saline 0.9%) 1,000 mls @ 1,000 mls/hr IV BOLUS ONE Stop: 07/29/24 15:31 Last Infusion: 07/29/24 16:29 Dose: Infused Documented By: Admin: 07/29/24 14:52 Dose: 1,000 mls/hr Documented By: INÉS Vital Signs Vital signs: Vital Signs - 8 hr 07/29/24 21:15 07/29/24 21:15 07/29/24 21:30 Temperature Pulse Rate 102 H Respiratory Rate 18 Blood Pressure 126/68 133/61 Pulse Oximetry 95 Oxygen Delivery Method 07/29/24 21:30 07/29/24 21:45 07/29/24 21:45 Temperature Pulse Rate 108 H 108 H Respiratory Rate 18 17 Blood Pressure 132/73 Pulse Oximetry 97 96 Oxygen Delivery Method 07/29/24 22:00 07/29/24 22:15 07/29/24 22:30 Temperature 98.0 F Pulse Rate 114 H 111 H Respiratory Rate 22 16 Blood Pressure 115/77 109/77 120/67 Pulse Oximetry 97 97 Oxygen Delivery Method Room Air 07/29/24 22:30 07/29/24 22:45 07/29/24 22:45 Temperature Pulse Rate 110 H 106 H Respiratory Rate 11 L 18 Blood Pressure 130/71 Pulse Oximetry 96 95 Oxygen Delivery Method 07/29/24 23:00 07/29/24 23:00 Temperature Pulse Rate 113 H Respiratory Rate 19 Blood Pressure 127/66 Pulse Oximetry 96 Oxygen Delivery Method <Angle Bray, DO - Last Filed: 07/29/24 23:04> Orders Ordered: ED Orders 07/29/24 22:12 Hematocrit Stat Hemoglobin Stat Discontinued Medications Albuterol/Ipratropium (Albuterol/Ipratropium 3 Ml Ampul) 9 ml INH NOW ONE Stop: 07/29/24 13:50 Last Admin: 07/29/24 13:51 Dose: 9 ml Documented By: MARQUIS Furosemide (Furosemide 40 Mg/4 Ml Vial) 20 mg IV NOW ONE Stop: 07/29/24 18:49 Last Admin: 07/29/24 19:53 Dose: 20 mg Documented By: INÉS Sodium Chloride (Normal Saline 0.9%) 1,000 mls @ 1,000 mls/hr IV BOLUS ONE Stop: 07/29/24 15:31 Last Infusion: 07/29/24 16:29 Dose: Infused Documented By: Admin: 07/29/24 14:52 Dose: 1,000 mls/hr Documented By: INÉS Vital Signs Vital signs: Vital Signs - 8 hr 07/29/24 21:15 07/29/24 21:15 07/29/24 21:30 Temperature Pulse Rate 102 H Respiratory Rate 18 Blood Pressure 126/68 133/61 Pulse Oximetry 95 Oxygen Delivery Method 07/29/24 21:30 07/29/24 21:45 07/29/24 21:45 Temperature Pulse Rate 108 H 108 H Respiratory Rate 18 17 Blood Pressure 132/73 Pulse Oximetry 97 96 Oxygen Delivery Method 07/29/24 22:00 07/29/24 22:15 07/29/24 22:30 Temperature 98.0 F Pulse Rate 114 H 111 H Respiratory Rate 22 16 Blood Pressure 115/77 109/77 120/67 Pulse Oximetry 97 97 Oxygen Delivery Method Room Air 07/29/24 22:30 07/29/24 22:45 07/29/24 22:45 Temperature Pulse Rate 110 H 106 H Respiratory Rate 11 L 18 Blood Pressure 130/71 Pulse Oximetry 96 95 Oxygen Delivery Method 07/29/24 23:00 07/29/24 23:00 Temperature Pulse Rate 113 H Respiratory Rate 19 Blood Pressure 127/66 Pulse Oximetry 96 Oxygen Delivery Method Medical Decision Making <Timoteo Valadez MD - Last Filed: 07/30/24 05:08> Lab Data Lab results reviewed: Yes I reviewed the patient's lab results. Lab results narrative: 79-year-old male with history of anemia, prior remote hematuria resolved after removal of bladder stones 15 months ago, subsequently scheduled for endoscopy upper and lower that was canceled recently for upper respiratory infection symptoms, no black or red stools, feels more short of breath. Afebrile, sirs screen negative. No obvious active external source of bleeding at this time. Shortness of breath might be due to worsening anemia. Labs pending including hemoglobin. Initial labs: White blood cell count 7200, hemoglobin 7.2 (same value recent days), hematocrit 24.3, platelets 645,000 elevated. BUN 21 with creatinine 1.03. Glucose 117. Serum CO2 19 decreased. Sodium 140 with potassium 3.8 and serum chloride 107. Liver functions unremarkable. Lactate 4.1 elevated noted. Patient given IV fluids due to initial elevated lactate, repeat lactate was improved. No fever. Chest x-ray no acute changes noted. Subsequent hemoglobin 6.8 decreased, no active ongoing external GI bleeding, suspect hemodilutional drop in hemoglobin, however anemia may be a component of his shortness of breath. Verbal consent for transfusion, initial IV single unit packed cells to be transfused, with IV Lasix 20 mg dose. 1900, transfusion single unit packed red blood cells to be initiated with IV Lasix dose. Signed out to oncoming ED shift physician Dr. Bray. Patient signed out to me at shift change by Dr. Valadez pending final disposition. Patient was transfused 1 unit of packed red blood cell hemoglobin initially was 6.8 and was thought to be partly related to hemodilution from the 1 L of normal saline that was given. Hemoglobin on recheck status post 1 unit of packed red blood transfusion came up to 7.9 patient feel much better on reexamination. He will follow up with Dr. Morrow office for a upcoming endoscopy colonoscopy in 1 month. His BNP was elevated at some 34 he was given a dose of Lasix 20 mg IV x1 with uop 850ml All lab work, vital signs, nurse triage note, medication list, and all imaging studies reviewed as well. Differential diagnosis anemia, GI bleed, colon cancer, duodenum ulcer, diverticular bleed, pneumonia, COVID, flu, RSV. Return with new or worsening symptoms 07/29/24 22:12 07/29/24 13:35 Labs: Lab Results 07/29/24 07/29/24 07/29/24 Range/Units 13:35 13:35 13:35 WBC 7.2 (4.5-11.0) X10^3/uL RBC 3.53 L (4.5-5.9) X10^6/uL Hgb 7.2 L 7.3 L (13.5-17.5) g/dL Hct 24.3 L 24.2 L (41-53) % MCV 68.8 L (80-100) fL MCH 20.4 L (26-34) PG MCHC 29.7 L (30-36) % RDW 19.2 H (11.6-14.8) % Plt Count 645 H (150-400) X10^3/uL Neut % (Auto) 58.5 (50-75) % Lymph % (Auto) 14.7 L (25-40) % [place] % (Auto) 19.9 H (3-14) % Eos % (Auto) 5.7 H (2-4) % Baso % (Auto) 1.2 (0-2) % Neut # (Auto) 4200 (5371-9535) /uL Lymph # (Auto) 1100 (1372-6079) /uL [place] # (Auto) 1400 H (0-900) /uL Eos # (Auto) 400 (0-450) /uL Baso # (Auto) 100 (0-100) /uL RBC Morphology See below Hypochromasia 2+ H Anisocytosis 2+ H Microcytosis 2+ H Schistocytes 1+ H PT 21.2 H (9.4-12.5) SECONDS INR 1.9 H (0.9-1.3) Sodium 140 (137-145) mmol/L Potassium 3.8 (3.4-5.1) mmol/L Chloride 107 (98-107) mmol/L Carbon Dioxide 19 L (22-32) mmol/L BUN 21 H (9-20) mg/dL Creatinine 1.03 (0.66-1.25) mg/dL Estimated GFR > 60 (>60) mL/min BUN/Creatinine Ratio 20.4 (6-22) Glucose 117 H (80-110) mg/dL Lactate 4.1 H* (0.7-2.1) mmol/L Calcium 9.2 (8.4-10.2) mg/dL Total Bilirubin 0.9 (0.2-1.3) mg/dL AST 25 (17-59) IU/L ALT 21 (<50) IU/L Alkaline Phosphatase 87 (38-126) U/L Troponin I < 0.012 (0.01-0.034) ng/mL NT-Pro-B Natriuret Pep 734 H (<450) pg/mL Total Protein 6.8 (6.3-8.2) g/dL Albumin 4.0 (3.5-5.0) g/dL Globulin 2.8 (1.7-4.1) g/dL Albumin/Globulin Ratio 1.4 (1.0-2.8) Blood Type O Positive Antibody Screen Negative Crossmatch See Detail 07/29/24 07/29/24 07/29/24 Range/Units 16:03 17:02 22:12 WBC (4.5-11.0) X10^3/uL RBC (4.5-5.9) X10^6/uL Hgb 6.8 L* 7.9 L (13.5-17.5) g/dL Hct 23.0 L 26.1 L (41-53) % MCV (80-100) fL MCH (26-34) PG MCHC (30-36) % RDW (11.6-14.8) % Plt Count (150-400) X10^3/uL Neut % (Auto) (50-75) % Lymph % (Auto) (25-40) % [place] % (Auto) (3-14) % Eos % (Auto) (2-4) % Baso % (Auto) (0-2) % Neut # (Auto) (0531-6598) /uL Lymph # (Auto) (0011-8239) /uL [place] # (Auto) (0-900) /uL Eos # (Auto) (0-450) /uL Baso # (Auto) (0-100) /uL RBC Morphology Hypochromasia Anisocytosis Microcytosis Schistocytes PT (9.4-12.5) SECONDS INR (0.9-1.3) Sodium (137-145) mmol/L Potassium (3.4-5.1) mmol/L Chloride (98-107) mmol/L Carbon Dioxide (22-32) mmol/L BUN (9-20) mg/dL Creatinine (0.66-1.25) mg/dL Estimated GFR (>60) mL/min BUN/Creatinine Ratio (6-22) Glucose (80-110) mg/dL Lactate 2.3 H (0.7-2.1) mmol/L Calcium (8.4-10.2) mg/dL Total Bilirubin (0.2-1.3) mg/dL AST (17-59) IU/L ALT (<50) IU/L Alkaline Phosphatase (38-126) U/L Troponin I (0.01-0.034) ng/mL NT-Pro-B Natriuret Pep (<450) pg/mL Total Protein (6.3-8.2) g/dL Albumin (3.5-5.0) g/dL Globulin (1.7-4.1) g/dL Albumin/Globulin Ratio (1.0-2.8) Blood Type Antibody Screen Crossmatch Imaging Data Chest x-ray: Radiologist's Impression: [address] [address] XRay Report Signed Patient: Ted Gentile MR#: [id number] : 1945 Acct:[id number] Age/Sex: 79 / M Date of Service: 07/29/24 Loc: ED Accession Number: [id number] Procedure: XR chest 1V Ordering Provider: Timoteo Valadez MD PROCEDURE: XR CHEST 1V INDICATIONS: Shortness of breath TECHNIQUE: One view of the chest was acquired. COMPARISON: None. FINDINGS: Surgical changes and devices: None. Lungs and pleura: No definite signs concerning for edema. Mild right basilar linear atelectasis versus scarring. Possible trace right pleural effusion versus pleural thickening.. Mediastinum: Mediastinal contours appear normal. Heart size is enlarged. Bones and chest wall: No suspicious bony lesions. Overlying soft tissues appear unremarkable. IMPRESSION: Cardiomegaly. Mild right basilar linear atelectasis versus scarring. Possible trace right pleural effusion versus pleural thickening. Dictated by: Francisco Castaneda M.D. on 07/29/2024 at 14:00 Approved by: Francisco Castaneda M.D. on 07/29/2024 at 14:01 ECG Data Interpretation: Atrial fibrillation with ventricular response rate 96. Right bundle branch block pattern noted. QRS 146, QTC 507 prolonged. MDM Narrative Medical decision making narrative: 79-year-old male with history of gross hematuria in the past due to bladder stones which were eventually removed 15 months ago, ongoing diagnosis evaluation for anemia, was scheduled for recent upper and lower endoscopy, canceled due to recent respiratory illness symptoms. Here for evaluation of increased shortness of breath. Afebrile, sirs screen negative. Chest x-ray no infiltrates described, atelectasis versus scarring suspected, cardiomegaly noted. See radiology report. Trial of nebulized albuterol, no significant change in his shortness of breath. Hemoglobin 7.3. Elevated lactate 4 noted, IV fluids given, repeat lactate after fluids improved/normalized. Repeat hemoglobin however 6.8 was less than 7. Patient anticipated transfusion, does meet criteria less than 7, we will give single unit packed red cell transfusion, with IV Lasix. Patient agreeable. 1900, Consented for blood transfusion. We will recheck hemoglobin after single unit packed cell transfusion with IV Lasix. Consider admission if hemoglobin not increasing, no active external bleeding noted. Anticipate discharge if hemoglobin increased greater than 7.0 threshold, with further workup re-attempt upper/lower endoscopy as an outpatient. Signed out to Dr Bray <Angel Bray, DO - Last Filed: 07/29/24 23:04> Lab Data Lab results narrative: White blood cell count 7200, hemoglobin 7.2 (same value recent days), hematocrit 24.3, platelets 645,000 elevated. BUN 21 with creatinine 1.03. Glucose 117. Serum CO2 19 decreased. Sodium 140 with potassium 3.8 and serum chloride 107. Liver functions unremarkable. Lactate 4.1 elevated noted. Patient signed out to me at shift change by Dr. Valadez pending final disposition. Patient was transfused 1 unit of packed red blood cell hemoglobin initially was 6.8 and was thought to be partly related to hemodilution from the 1 L of normal saline that was given. Hemoglobin on recheck status post 1 unit of packed red blood transfusion came up to 7.9 patient feel much better on reexamination. He will follow up with Dr. Morrow office for a upcoming endoscopy colonoscopy in 1 month. His BNP was elevated at some 34 he was given a dose of Lasix 20 mg IV x1 with uop 850ml All lab work, vital signs, nurse triage note, medication list, and all imaging studies reviewed as well. Differential diagnosis anemia, GI bleed, colon cancer, duodenum ulcer, diverticular bleed, pneumonia, COVID, flu, RSV. Return with new or worsening symptoms Labs: Lab Results 07/29/24 07/29/24 07/29/24 Range/Units 13:35 13:35 13:35 WBC 7.2 (4.5-11.0) X10^3/uL RBC 3.53 L (4.5-5.9) X10^6/uL Hgb 7.2 L 7.3 L (13.5-17.5) g/dL Hct 24.3 L 24.2 L (41-53) % MCV 68.8 L (80-100) fL MCH 20.4 L (26-34) PG MCHC 29.7 L (30-36) % RDW 19.2 H (11.6-14.8) % Plt Count 645 H (150-400) X10^3/uL Neut % (Auto) 58.5 (50-75) % Lymph % (Auto) 14.7 L (25-40) % [place] % (Auto) 19.9 H (3-14) % Eos % (Auto) 5.7 H (2-4) % Baso % (Auto) 1.2 (0-2) % Neut # (Auto) 4200 (9821-9976) /uL Lymph # (Auto) 1100 (3978-8465) /uL [place] # (Auto) 1400 H (0-900) /uL Eos # (Auto) 400 (0-450) /uL Baso # (Auto) 100 (0-100) /uL RBC Morphology See below Hypochromasia 2+ H Anisocytosis 2+ H Microcytosis 2+ H Schistocytes 1+ H PT 21.2 H (9.4-12.5) SECONDS INR 1.9 H (0.9-1.3) Sodium 140 (137-145) mmol/L Potassium 3.8 (3.4-5.1) mmol/L Chloride 107 (98-107) mmol/L Carbon Dioxide 19 L (22-32) mmol/L BUN 21 H (9-20) mg/dL Creatinine 1.03 (0.66-1.25) mg/dL Estimated GFR > 60 (>60) mL/min BUN/Creatinine Ratio 20.4 (6-22) Glucose 117 H (80-110) mg/dL Lactate 4.1 H* (0.7-2.1) mmol/L Calcium 9.2 (8.4-10.2) mg/dL Total Bilirubin 0.9 (0.2-1.3) mg/dL AST 25 (17-59) IU/L ALT 21 (<50) IU/L Alkaline Phosphatase 87 (38-126) U/L Troponin I < 0.012 (0.01-0.034) ng/mL NT-Pro-B Natriuret Pep 734 H (<450) pg/mL Total Protein 6.8 (6.3-8.2) g/dL Albumin 4.0 (3.5-5.0) g/dL Globulin 2.8 (1.7-4.1) g/dL Albumin/Globulin Ratio 1.4 (1.0-2.8) Blood Type O Positive Antibody Screen Negative Crossmatch See Detail 07/29/24 07/29/24 07/29/24 Range/Units 16:03 17:02 22:12 WBC (4.5-11.0) X10^3/uL RBC (4.5-5.9) X10^6/uL Hgb 6.8 L* 7.9 L (13.5-17.5) g/dL Hct 23.0 L 26.1 L (41-53) % MCV (80-100) fL MCH (26-34) PG MCHC (30-36) % RDW (11.6-14.8) % Plt Count (150-400) X10^3/uL Neut % (Auto) (50-75) % Lymph % (Auto) (25-40) % [place] % (Auto) (3-14) % Eos % (Auto) (2-4) % Baso % (Auto) (0-2) % Neut # (Auto) (0067-6703) /uL Lymph # (Auto) (8429-8901) /uL [place] # (Auto) (0-900) /uL Eos # (Auto) (0-450) /uL Baso # (Auto) (0-100) /uL RBC Morphology Hypochromasia Anisocytosis Microcytosis Schistocytes PT (9.4-12.5) SECONDS INR (0.9-1.3) Sodium (137-145) mmol/L Potassium (3.4-5.1) mmol/L Chloride (98-107) mmol/L Carbon Dioxide (22-32) mmol/L BUN (9-20) mg/dL Creatinine (0.66-1.25) mg/dL Estimated GFR (>60) mL/min BUN/Creatinine Ratio (6-22) Glucose (80-110) mg/dL Lactate 2.3 H (0.7-2.1) mmol/L Calcium (8.4-10.2) mg/dL Total Bilirubin (0.2-1.3) mg/dL AST (17-59) IU/L ALT (<50) IU/L Alkaline Phosphatase (38-126) U/L Troponin I (0.01-0.034) ng/mL NT-Pro-B Natriuret Pep (<450) pg/mL Total Protein (6.3-8.2) g/dL Albumin (3.5-5.0) g/dL Globulin (1.7-4.1) g/dL Albumin/Globulin Ratio (1.0-2.8) Blood Type Antibody Screen Crossmatch Discharge Plan Departure Patient Disposition: Home Clinical Impression: Dyspnea, Anemia Instructions: Anemia Activity Restrictions/Additional Instructions: Return with new or worsening symptoms. Follow up for endoscopy and colonoscopy procedure as outpatient. Prescriptions: No Action albuterol sulfate [Ventolin HFA] 90 mcg/actuation HFA aerosol inhaler 2 puff INHALATION Q4-6H PRN (Reason: shortness of breath or wheezing) Qty: 18 3RF montelukast 10 mg tablet 10 mg PO ONCE PM Qty: 90 2RF metoprolol tartrate 25 mg tablet 25 mg PO .qday apixaban [Eliquis] 5 mg tablet 5 mg PO BID losartan 50 mg tablet 50 mg PO DAILY potassium chloride 20 mEq tablet extended release 20 meq PO BID dofetilide 250 mcg capsule 250 mcg PO Q12H felodipine 5 mg tablet extended release 24 hr 5 mg PO DAILY furosemide 20 mg tablet 20 mg PO Q OTHER DAY Referrals: Arlene Jarquin MD [Primary Care Provider] - Stand Alone Forms: Patient Portal/API/Survey
[2024-07-29 16:24] LABS: Lactate 2HR (Lactic Acid Rflx) 2.3 mmol/L (0.7-2.1)
[2024-07-29 16:42] LABS: Hematocrit 24.2 % (41-53); Hemoglobin 7.3 g/dL (13.5-17.5)
[2024-07-29 17:19] LABS: Hemoglobin 6.8 g/dL (13.5-17.5)
[2024-07-29] MEDS: FUROSEMIDE 40 MG/4 ML VIAL 20 MG IV (19:53)
[2024-07-29 22:34] LABS: Hematocrit 26.1 % (41-53); Hemoglobin 7.9 g/dL (13.5-17.5)
== END 2024-07-29 23:28 | disposition home or self-care (01) ==
PROVIDERS: Emergency Medicine; Emergency Provider Family Medicine; PCP Family Medicine
DX: R06.00 Dyspnea, unspecified (principal); D64.9 Anemia, unspecified; I48.91 Unspecified atrial fibrillation; I45.10 Unspecified right bundle-branch block
CPT/HCPCS: 36415; 36430; 71045; 80053; 83605; 83880; 84484; 85014; 85018; 85025; 85610; 86850; 86900; 86901; 87040; 93005; 94150; 94640; 96361; 96374; 99285; P9016; J1938

== ENCOUNTER → 2024-08-12 14:28 | Outpatient (CLI) | payer MEDICARE, OTHER, SELFPAY ==
--- NOTE | 2024-08-12 14:29 | DI.RAD.S_ITS ---
PROCEDURE: XR KUB INDICATIONS: recurrent calculi TECHNIQUE: One view of the abdomen acquired. COMPARISON: [facility], CR, XR KUB, 04/29/2024, 15:06. FINDINGS: Stool gas pattern: Normal-no evidence of ileus or obstruction. No free intraperitoneal or extraperitoneal air. No gross evidence of ascites Soft tissues: No stones identified.. No soft tissue masses. Organs: No gross evidence for organomegaly. IMPRESSION: No stones identified-normal abdomen. 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 Moderate L4-5 and L5-S1 degenerative disc and facet disease. Dictated by: Angel De Los Santos M.D. on 08/13/2024 at 6:27 Approved by: Angel De Los Santos M.D. on 08/13/2024 at 6:28
== END ==
PROVIDERS: PCP Family Medicine; Referring Provider Urology; Visit Provider Urology
DX: Z87.442 Personal history of urinary calculi (principal); Z09 Encounter for follow-up examination after completed treatment for conditions other than malignant neoplasm; M91.41 Coxa magna, right hip; M16.11 Unilateral primary osteoarthritis, right hip; M51.369 Other intervertebral disc degeneration, lumbar region without mention of lumbar back pain or lower extremity pain; M51.379 Other intervertebral disc degeneration, lumbosacral region without mention of lumbar back pain or lower extremity pain; M47.816 Spondylosis without myelopathy or radiculopathy, lumbar region; M47.817 Spondylosis without myelopathy or radiculopathy, lumbosacral region
CPT/HCPCS: 74018

== ENCOUNTER 2024-08-28 11:35 | Day surgery (SDC) | payer MEDICARE, OTHER, SELFPAY ==
--- NOTE | 2024-08-28 | PATH_ITS ---
[facility] Accession Number: [id number] No. of containers..02 Tissue . 01 Material submitted: . PART A: small bowel - SMALL BOWEL PART B: gastrointestinal site - GASTRIC . 01 Clinical history: . A) R/O CELIAC B) R/O H. PYLORI . 01 Diagnosis: Part A: SMALL BOWEL: Small bowel mucosa with no diagnostic alterations. No active inflammation and no evidence of celiac disease. . Part B: GASTRIC: Gastric mucosa with minimal chronic inflammation. No Helicobacter organisms identified. No intestinal metaplasia, dysplasia, or malignancy identified. [facility] 09/03/20241535 Local . 01 Electronically signed: . Adam Li MD, Pathologist NPI- [id number] . 01 Gross description: . A. Received in formalin with two patient identifiers and small bowel, rule out celiac, and consists of two gordon tissues averaging 0.2 cm in greatest dimension, which are submitted in toto in cassette A1. . B. Received in formalin with two patient identifiers and gastric, rule out H. pylori, and consists of two gordon tissues measuring 0.1 and 0.2 cm in greatest dimension, which are submitted in toto in cassette B1. ([id number]) /MRV 09/03/2024 1536 Local . 01 Microscopic: . Part B: GASTRIC: An immunohistochemical stain was performed to evaluate for Helicobacter organisms and is negative. The control stains appropriately. * This test was developed and the performance characteristics were validated by [facility]. It has not been cleared or approved by the Food and Drug Administration. . 01 Pathologist provided ICD-10: K29.30 . 01 CPT . 961551, 943868, [id number] Specimen Comment: A courtesy copy of this report has been sent to [phone] Performed at: [address] [facility] [address], [place], [place] [id number] MD Adam Li MD Phone: [phone]
[2024-08-28 12:03] VITALS: BP 130/72; PULSE 117; RESP 18; TEMP 36.4; O2SAT 96
[2024-08-28] MEDS: LACTATED RINGERS 1,000 ML 42 ML IV (12:13)
--- NOTE | 2024-08-28 12:37 | PM.HP.IH.1 ---
History of Present Illness History of Present Illness Date Patient Seen: 08/28/24 Chief complaint: SDC Narrative: Anemia. Rule out lesions that could cause blood loss anemia [facility] Medical History (Updated 08/14/24 @ 14:12 by Jv Boyd MD) Monilial rash Bladder calculi History of recurrent UTIs Incomplete emptying of bladder Urinary retention Lower urinary tract symptoms History of urinary calculi Recurrent urinary tract infection Hydrocele, unspecified UTI (urinary tract infection) Left bundle branch block MUNIRA (obstructive sleep apnea) Asthma Hay fever Ankle fracture, left Mumps Measles Chicken pox Hypertension (~1989) Atrial fibrillation (~2017) Surgical History History of urologic surgery (07/11/23) History of bladder surgery Status post repair of hydrocele Hx of prostatectomy S/P TURP History of hernia repair History of ankle joint replacement (~2017) History of partial knee replacement (~2014) Family History Father Cancer Mother Heart disease Hyperlipidemia Hypertension Stroke Social History marital status: number of children: 1 household members: spouse lives independently: Yes occupational status: previously employed special mariano needs: No Smoking Status: Former smoker second hand exposure: No alcohol intake: former substance use type: does not use caffeine: No Meds Home Medications and Allergies Home Medications Medication Instructions Recorded Confirmed Type apixaban 5 mg tablet (Eliquis) 5 mg PO BID 09/26/17 08/28/24 History metoprolol tartrate 25 mg tablet 25 mg PO .qday 09/26/17 08/28/24 History dofetilide 250 mcg capsule 250 mcg PO Q12H 04/11/18 08/28/24 History losartan 50 mg tablet 50 mg PO DAILY 04/11/18 08/28/24 History potassium chloride 20 mEq 20 meq PO BID 04/11/18 08/28/24 History tablet,extended release felodipine 5 mg tablet,extended 5 mg PO DAILY 05/21/18 08/28/24 History release 24 hr albuterol sulfate 90 mcg/actuation 2 puff inhalation Q4-6H PRN 07/01/19 08/28/24 Rx aerosol inhaler (Ventolin HFA) shortness of breath or wheezing #18 grams furosemide 20 mg tablet 20 mg PO Q OTHER DAY 01/04/24 08/28/24 History montelukast 10 mg tablet 10 mg PO ONCE PM #90 tabs 07/01/24 08/28/24 Rx fluticasone propionate 110 2 puff inhalation BID #12 grams 08/09/24 08/28/24 Rx mcg/actuation HFA aerosol inhaler Allergies Allergy/AdvReac Type Severity Reaction Status Date / Time ciprofloxacin Allergy Severe possible Verified 08/14/24 13:35 fatal reaction to Dofetilide, cardiac med dofetilide Allergy Anaphylaxis Verified 08/14/24 13:35 Exam Vital Signs (past 8 hours): - 08/28/24 12:03 Temperature 97.6 F Pulse Rate 117 H Respiratory Rate 18 Blood Pressure 130/72 Pulse Oximetry 96 Oxygen Delivery Method Room Air Oxygen Delivery Method Room Air Narrative Exam Narrative: Oropharynx free of lesions Chest clear to auscultation percussion Cardiac exam reveals no S3 or murmur Assessment & Plan Assessment & Plan narrative: Blood loss anemia. Need for EGD and colonoscopy to sort out possible causes. Risks, benefits, alternatives have been explained. Time-Based Coding :: [TOTAL MINUTES] spent with patient and on the chart (including review of chart, obtaining history, exam, reviewing outside data, placing orders, documenting exam and treatment plan, and counseling patient) on [DATE]. 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
--- NOTE | 2024-08-28 12:39 | PM.OP.EC ---
Operative Date/Time/Diagnoses Date of procedure: 08/28/24 Time of procedure: 13:13 Pre-op diagnosis: See indication and findings Post-op diagnosis: same Procedure & Clinicians Study performed: EGD and colonoscopy Same procedure as scheduled: Yes Indications: Blood loss anemia Surgeon: Chang Monge Procedure Notes Procedure in detail: After informed consent was obtained the patient was placed in left lateral decubitus position. The video upper scope was placed into the oropharynx and with the patient's help swallowed into the esophagus. The esophagus stomach and duodenal were carefully examined. On withdrawal, retroflexed view the GE junction was performed. The scope was removed. The patient tolerated procedure well. The patient was then turned to the colonoscope substituted. This was easily passed the cecum. Preparation was good. On slow withdrawal mucosa was carefully examined. The scope was removed. The patient tolerated procedure well. Blood loss none Complications none Sedation mac Findings EGD 1. LA classification C esophagitis over the last 4 cm of the esophagus 2. Otherwise normal GE junction 3. 6 cm hiatal hernia with 1 erythematous and slightly eroded lesion at the hiatus consistent with mild Anand lesion 4. Mild erosive disease with some nearby hematin flecks in the antrum biopsies taken to rule out Helicobacter 5. Random biopsies taken to rule out celiac Colonoscopy 1. Normal colonoscopy to cecum Ted is not on any anti secretory medication. We will place him on Pepcid 20 mg b.i.d. as a start and see how he does. CBC should be rechecked in 1 month. And when hematocrit returns to normal I would suggest follow-up endoscopy to prove complete healing.
[2024-08-28 13:13] VITALS: BP 103/70; PULSE 87; RESP 13; TEMP 36.4; O2SAT 95
[2024-08-28 13:19] VITALS: BP 105/64; PULSE 94; RESP 16; O2SAT 96
[2024-08-28 13:31] VITALS: BP 106/73; PULSE 88; RESP 16; O2SAT 100
== END 2024-08-28 13:51 | disposition home or self-care (01) ==
PROVIDERS: PCP Family Medicine; Referring Provider Internal Medicine Gastroenterology; Visit Provider Internal Medicine Gastroenterology
PROC: 0DJ08ZZ Inspection of Upper Intestinal Tract, Via Natural or Artificial Opening Endoscopic (ICD-10-PCS; CPT 43239; principal; 2024-08-28 14:00)
PROC: 0DJD8ZZ Inspection of Lower Intestinal Tract, Via Natural or Artificial Opening Endoscopic (ICD-10-PCS; CPT 45378; 2024-08-28 14:00)
DX: D50.0 Iron deficiency anemia secondary to blood loss (chronic) (principal); K44.9 Diaphragmatic hernia without obstruction or gangrene; K20.90 Esophagitis, unspecified without bleeding; K29.50 Unspecified chronic gastritis without bleeding
CPT/HCPCS: 43239; 45378; J2704

== ENCOUNTER → 2024-09-06 13:35 | Outpatient (CLI) | payer MEDICARE, OTHER, SELFPAY ==
[2024-09-06 14:29] LABS: Add Manual Diff / Slide Review NO; Basophils Absolute Auto 100 /uL (0-100); Eosinophils Absolute Auto 900 /uL (0-450); Eosinophils Percent Auto 9.4 % (2-4); Hemoglobin 8.6 g/dL (13.5-17.5); Lymphocytes Absolute Auto 1200 /uL (1100-4500); Lymphocytes Percent Auto 12.9 % (25-40); Mean Corpuscular HGB Conc 30.6 % (30-36); Mean Corpuscular Hemoglobin 20.9 PG (26-34); Mean Corpuscular Volume 68.5 fL (80-100); Monocytes Absolute Auto 1600 /uL (0-900); Neutrophils Absolute Auto 5700 /uL (1500-7000); Neutrophils Percent Auto 59.7 % (50-75); Platelet Count 626 X10^3/uL (150-400); Red Blood Cell Count 4.09 X10^6/uL (4.5-5.9); Red Cell Distribution Width 22.8 % (11.6-14.8); White Blood Cell Count 9.5 X10^3/uL (4.5-11.0)
[2024-09-06 14:55] LABS: Anisocytosis 2+; Microcytosis 2+
[2024-09-06 14:56] LABS: Ovalocytes 1+; Poikilocytosis 1+
== END ==
PROVIDERS: PCP Family Medicine; Referring Provider Family Medicine; Visit Provider Family Medicine
DX: D64.9 Anemia, unspecified (principal)
CPT/HCPCS: 36415; 85025

== ENCOUNTER → 2025-02-11 14:35 | Outpatient (CLI) | payer MEDICARE, OTHER, SELFPAY ==
--- NOTE | 2025-02-11 14:37 | DI.RAD.S_ITS ---
PROCEDURE: XR KUB INDICATIONS: Rule out recurrent stones TECHNIQUE: One view of the abdomen acquired. COMPARISON: [facility], CR, XR KUB, 08/12/2024, 14:24. FINDINGS: Stool gas pattern: Normal-no evidence of ileus or obstruction. No free intraperitoneal or extraperitoneal air. No gross evidence of ascites Soft tissues: No radiopaque stones or other pathology calcification identified. No soft tissue masses. Organs: No gross evidence for organomegaly. IMPRESSION: No acute intra-abdominal disease. No radiopaque stones Severe right hip degeneration Dictated by: Angel De Los Santos M.D. on 02/12/2025 at 12:07 Approved by: Angel De Los Santos M.D. on 02/12/2025 at 12:08
== END ==
PROVIDERS: PCP Family Medicine; Referring Provider Urology; Visit Provider Urology
DX: M16.11 Unilateral primary osteoarthritis, right hip (principal); Z87.442 Personal history of urinary calculi
CPT/HCPCS: 74018

== ENCOUNTER → 2025-02-24 16:11 | Outpatient (CLI) | payer MEDICARE, OTHER, SELFPAY ==
[2025-02-24 17:09] LABS: Add Manual Diff / Slide Review NO; Hematocrit 27.7 % (41-53); Hemoglobin 8.9 g/dL (13.5-17.5); Lymphocytes Absolute Auto 1100 /uL (1100-4500); Mean Corpuscular HGB Conc 32.3 % (30-36); Mean Corpuscular Hemoglobin 28.5 PG (26-34); Mean Corpuscular Volume 88.4 fL (80-100); Platelet Count 540 X10^3/uL (150-400)
[2025-02-24 17:28] LABS: Alanine Aminotransferase 17 IU/L (<50); Albumin 3.7 g/dL (3.5-5.0); Albumin Globulin Ratio 1.4 (1.0-2.8); Alkaline Phosphatase 86 U/L (38-126); Blood Urea Nitrogen 28 mg/dL (9-20); Calcium 9.0 mg/dL (8.4-10.2); Carbon Dioxide 28 mmol/L (22-32); Chloride 105 mmol/L (98-107); Cholesterol 137 mg/dL (140-199); Estimated Glomerular Filt Rate > 60 mL/min (>60); Globulin 2.6 g/dL (1.7-4.1); Glucose 137 mg/dL (70-99); HDL Cholesterol 59 mg/dL (40-60); HEMOLYSIS < 15 (0-50); Potassium 3.8 mmol/L (3.4-5.1); Sodium 139 mmol/L (137-145); Total Protein 6.3 g/dL (6.3-8.2); Triglycerides 96 mg/dL (35-150)
[2025-02-24 17:29] LABS: Hemoglobin A1C% w Est Avg Glu 5.2 % (4.0-6.0)
[2025-02-24 18:59] LABS: Thyroid Stimulating Hormone 1.33 uIU/mL (0.47-4.68)
== END ==
PROVIDERS: PCP Family Medicine; Referring Provider Internal Medicine Cardiovascular Disease; Visit Provider Internal Medicine Cardiovascular Disease
DX: I48.0 Paroxysmal atrial fibrillation (principal); Z79.899 Other long term (current) drug therapy
CPT/HCPCS: 36415; 80053; 80061; 83036; 84443; 85025

== ENCOUNTER → 2025-04-10 11:53 | Outpatient (CLI) | payer MEDICARE, OTHER, SELFPAY ==
[2025-04-10 14:20] LABS: Appearance Urine UA CLEAR; Bilirubin Urine UA NEGATIVE (NEGATIVE); Color Urine UA YELLOW; Glucose Urine UA NEGATIVE (Negative); Ketones Urine UA NEGATIVE (NEGATIVE); Leukocyte Esterase Urine UA TRACE (NEGATIVE); Nitrite Urine UA POSITIVE (Negative); Occult Blood Urine UA TRACE-INTACT (Negative); Protein Urine UA 1+ (Negative); Specific Gravity Urine UA 1.015 (1.000-1.035); Urobilinogen Urine UA 0.2 E.U./dL (0.2); pH Urine UA 6.0 (4.5-8.0)
[2025-04-10 14:30] LABS: Culture Indicated Urine Specimen Cultured
== END ==
PROVIDERS: PCP Family Medicine; Visit Provider Urology
DX: N40.1 Benign prostatic hyperplasia with lower urinary tract symptoms (principal); N39.0 Urinary tract infection, site not specified
CPT/HCPCS: 81001; 87077; 87086

== ENCOUNTER → 2025-04-12 08:27 | Outpatient (CLI) | payer MEDICARE, OTHER, SELFPAY ==
--- NOTE | 2025-04-12 08:35 | DI.CT.S_ITS ---
PROCEDURE: CT CHEST ABD PEL W CON INDICATIONS: Anemia TECHNIQUE: After the administration of intravenous contrast, 5 mm thick sections acquired from the lung apices to the symphysis. 5 mm coronal and sagittal reformats were performed, with additional 7 mm MIP reformats through the lungs. For radiation dose reduction, the following was used: automated exposure control, adjustment of mA and/or kV according to patient size. COMPARISON: None. FINDINGS: Image quality: Excellent. CHEST: Lower Neck: No enlarged lymph nodes. Thyroid: Enlarged left thyroid lobe with small hypodense left thyroid nodules are seen measures up to 7 mm in size. Axillae: No enlarged lymph nodes. Chest Wall: Unremarkable. Lungs and Pleura: No pneumothorax or pleural effusions. No consolidation or suspicious nodules. Heart: Heart size is enlarged. No pericardial effusion. Prosthetic heart valve is seen. Thoracic Vessels: The aorta and pulmonary arteries demonstrate normal size. Mediastinum and Silvana: No enlarged lymph nodes. Esophagus: There is diffuse esophageal wall thickening and edema.. Moderate to large hiatal hernia. ABDOMEN: Liver: No solid mass. Gallbladder: No radiopaque gallstones or wall thickening. Biliary ducts: No biliary dilation. Pancreas: No ductal dilation. Spleen: Size is within normal limits. Adrenal Glands: No adrenal nodules. Kidneys and Ureters: No hydronephrosis. No solid mass. No complex renal cystic lesion which requires follow up. Nonspecific mild bilateral perinephric fat stranding. Simple appearing right renal cortical cyst measures 3.6 x 3.4 cm in size. Stomach and Bowel: Normal colonic caliber, without significant wall thickening. Sigmoid diverticulosis without CT evidence of acute diverticulitis. [id number] fecal stasis throughout the colon is seen. Peritoneum: No abnormal intraperitoneal fluid. No free air. Ventral Wall: No significant ventral hernia. Abdominal Nodes: No retroperitoneal or mesenteric adenopathy by size criteria. Vessels: Aorta and inferior vena cava are normal in size. PELVIS: Pelvic Organs: Markedly enlarged prostate gland with mass effect on floor of urinary bladder. Bladder: Diffuse bladder wall thickening. Underlying bladder wall mass cannot be excluded. Pelvic Nodes: No enlarged lymph nodes. Miscellaneous: No inguinal hernias are seen. Bones: No aggressive osseous abnormality. No acute vertebral body compression fracture. IMPRESSION: 1. Markedly enlarged prostate gland with significant mass effect on the urinary bladder. 2. Diffuse bladder wall thickening which may represent outlet obstruction. Posterior inferior bladder wall mass cannot be entirely excluded. Clinical and urological correlation is recommended. 3. No obstructing renal stones or hydronephrosis. Simple appearing right renal cyst. No gross solid appearing renal lesion. 4. Mild constipation. No bowel obstruction or abnormal bowel wall thickening. No free fluid or free air. 5. Cardiomegaly, no pericardial effusion. No mediastinal or hilar lymphadenopathy. 6. Bilateral lungs are clear. 7. Moderate to large hiatal hernia. Suggestion of diffuse esophageal wall thickening which may represent reflux disease and esophagitis suggest clinical correlation. Dictated by: Lance Wright M.D. on 04/13/2025 at 13:24 Approved by: Lance Wright M.D. on 04/13/2025 at 13:32
[2025-04-12 09:09] LABS: Estimated Glomerular Filt Rate > 60 mL/min (>60)
== END ==
LOC: CT 08:30
PROVIDERS: PCP Family Medicine; Referring Provider Family Medicine; Visit Provider Internal Medicine Cardiovascular Disease
DX: D50.9 Iron deficiency anemia, unspecified (principal); R42 Dizziness and giddiness; I51.7 Cardiomegaly; K44.9 Diaphragmatic hernia without obstruction or gangrene; N20.0 Calculus of kidney; K57.30 Diverticulosis of large intestine without perforation or abscess without bleeding; N40.0 Benign prostatic hyperplasia without lower urinary tract symptoms; K59.00 Constipation, unspecified
CPT/HCPCS: 36415; 71260; 74177; 82565; Q9967